=== PATIENT | male | born 1950 | race Caucasian/White ===

== ENCOUNTER 2017-05-06 11:16 | Inpatient (IN) | payer OTHER, MEDICARE ==
[~2017-05-06] VITALS: Ht 193 cm; Wt 113.4 kg
[~2017-05-06 11:16] MED LIST: AMLODIPINE BESY10 M1 PO; ASPIRIN EC81 M1 PO; BACTRIM DS TAB1 EACH PO; CEFTRIAXONE250 MG IV; DAILY VALUE1 EACH PO; HYDROCHLOROTHIA25 M1 PO; LISINOPRIL40 M1 PO; METFORMIN HCL850 M1 PO; NOVOLOG FL100 UNIT/1 SC; OXYCODONE HCL5 M1 PO; PERCOCET 5-3251 EACH PO; PLAVIX75 M1 PO; PROPRANOLOL HCL20 M1 PO; SIMVASTATIN10 M1 PO; TOUJEO SOL300 UNIT/1 SC; VANCO 1 GR1 GM/250 M IV; VERAPAMIL ER180 M1 PO
[2017-05-06 12:04] LABS: ABSOLUTE BASOPHIL COUNT 0 /CUMM (0.0-0.2); ABSOLUTE EOSINOPHIL COUNT 0.2 /CUMM (0.0-0.7); ABSOLUTE GRANULOCYTE CT 5.4 /CUMM (1.4-6.5); ABSOLUTE LYMPH COUNT 0.8 /CUMM (1.2-3.4); ABSOLUTE MONOCYTE COUNT 0.5 /CUMM (0.10-0.60); BASOPHIL % 0.3 % (0.0-2.0); EOSINOPHIL % 3.1 % (0-5); GRANULOCYTE % 78.1 % (42.2-75.2); HEMATOCRIT 38.3 % (42-52); MEAN CORPUSCULAR HGB 32.5 PG (27.0-31.0); MEAN CORPUSCULAR HGB CONC 34.4 G/DL (33.0-37.0); MEAN CORPUSCULAR VOLUME 94.4 FL (80.0-94.0); MEAN PLATELET VOLUME 8.8 FL (7.4-10.4); PLATELET COUNT 162 /CUMM (130-400); RBC DISTRIBUTION WIDTH 13.5 % (11.5-14.5); RED BLOOD CELL CT 4.06 /CUMM (4.70-6.10)
--- NOTE | 2017-05-06 12:44 | ED ANKLE/FOOT INJURY COMPLAINT ---
History of Present Illness General Chief Complaint: Lower Extremity Problems Stated Complaint: [facility] FOR INFECTED R FOOT Source: patient Exam Limitations: no limitations Vital Signs & Intake/Output Vital Signs & Intake/Output Vital Signs Date Time Temp Pulse Resp B/P B/P Pulse O2 O2 Flow FiO2 Mean Ox Delivery Rate 05/08 1550 97.9 83 20 132/64 95 Room Air 05/08 1033 140/80 05/08 1033 80 140/70 05/08 1033 80 140/70 05/08 1032 80 140/70 05/08 0625 97.5 80 18 140/70 96 Room Air 05/07 2121 98.7 82 18 148/98 98 Room Air 05/07 2114 82 148/98 ED Intake and Output 05/08 0000 05/07 1200 Intake Total 1180 500 Output Total 800 Balance 380 500 Intake, IV 700 500 Intake, Oral 480 Number 0 Bowel Movements Output, Urine 800 Allergies Coded Allergies: No Known Allergies (12/17/15) Reconcile Medications Amlodipine Besylate 10 MG TABLET 1 TAB PO DAILY BP (Reported) Aspirin (Ecotrin*) 81 MG TABLET.DR 1 TAB PO DAILY HEART/BLOOD (Reported) Hydrochlorothiazide 25 MG TABLET 1 TAB PO DAILY BP (Reported) Insulin Aspart, Recombinant (Novolog Flexpen) 100 UNIT/1 ML INSULN.PEN DIABETES (Reported) Less then 80 No insulin 80-150 5 Units 151-200 7 units 201-250 9 units 251-300 11 units 301-350 13 units 351-400 15 units more then 400 17 units and call your doctor Insulin Glargine,Hum.rec.anlog (Kathy Corrales) 300 UNIT/1 ML INSULN.PEN 34 UNITS SC QAM DIABETES (Reported) Lisinopril 40 MG TABLET 1 TAB PO DAILY BP (Reported) Metformin HCl 850 MG TABLET 1 TAB PO BID DIABETES (Reported) Multivitamin (Daily Value) 1 EACH TABLET 1 TAB PO DAILY VITAMIN SUPPORT ( Reported) Propranolol HCl 20 MG TABLET 1 TAB PO BID BP (Reported) Simvastatin (Simvastatin*) 10 MG TABLET 1 TAB PO QPM CHOLESTEROL (Reported) Verapamil HCl (Verapamil ER) 180 MG TABLET.ER 1 TAB PO DAILY BP (Reported) Triage Note: PT TO ED WITH C/O "INFECTED RIGHT FOOT AGAIN". Triage Nurses Notes Reviewed? yes Duration: day(s):, constant, continues in ED Timing: recent history Severity: moderate, severe Pain/Injury Location: Right: Foot. No Modifying Factors: none HPI: 67-year-old male comes into the emergency room for further evaluation of redness and swelling to right foot. History of diabetes and previous great toe amputation secondary to infection. He went to see his manufacturing applications engineer who sent him in here for further evaluation and admission. Denies any fever vomiting chills. Denies any other symptoms of symptoms. (Amrit Selby) Past History Travel History Traveled to [place] past 21 day No Medical History Any Pertinent Medical History? 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 No (Amrit Selby) Review of Systems Review of Systems Constitutional: Reports: no symptoms. EENTM: Reports: no symptoms. Respiratory: Reports: no symptoms. Cardiovascular: Reports: no symptoms. GI: Reports: no symptoms. Genitourinary: Reports: no symptoms. Musculoskeletal: Reports: see HPI. Skin: Reports: see HPI. Neurological/Psychological: Reports: no symptoms. Hematologic/Endocrine: Reports: no symptoms. Immunologic/Allergic: Reports: no symptoms. All Other Systems: Reviewed and Negative (Amrit Selby) Physical Exam Physical Exam General Appearance: well developed/nourished, mild distress Head: atraumatic Eyes: Bilateral: normal appearance. Ears, Nose, Throat: normal ENT inspection, hearing grossly normal Neck: normal inspection Cardiovascular/Respiratory: no respiratory distress Back: normal inspection Leg/Knee/Thigh Left: normal inspection Leg/Knee/Thigh Right: normal inspection Foot Right: erythema, swelling, warmth Neuro/Vascular: normal motor function Tendon: normal tendon function Psychiatric: awake, alert, oriented x 3 Skin: intact, normal color, warm/dry (Amrit Selby) Progress Differential Diagnosis: septic arthritis, gout, fracture, dislocation, sprain, contusion Plan of Care: Orders Procedure Date/time Status CBC WITHOUT DIFFERENTIAL 05/09 06 Active BASIC ELECTROLYTES PLUS BUN&CR 05/09 0600 Active Change service to 05/08 0918 Active Consistent Carbohydrate 3 05/07 D Active EXTREMETIES OR SPEC 05/07 1921 Active Current Medications Sig/Anh Start time Last Medication Dose Stop Time Status Admin Heparin Sodium 5,000 UNIT Q8 05/08 1442 AC (Porcine) Nicotine 7 MG DAILY 05/08 1000 AC 05/08 (Nicotine Cq) 1321 Vancomycin HCl 1,500 MG Q12 05/07 2200 AC 05/08 Sodium Chloride 250 ML 1030 (Normal Saline 0.9%) Atorvastatin Calcium 10 MG 1700 05/07 1700 AC 05/07 (Lipitor) 2114 Amlodipine Besylate 10 MG DAILY 05/07 1000 AC 05/08 (Norvasc) 1033 Hydrochlorothiazide 25 MG DAILY 05/07 1000 AC 05/08 (Hydrodiuril) 1033 Lisinopril 40 MG DAILY 05/07 1000 AC 05/08 (Prinivil) 1033 Multivitamins 1 TAB DAILY 05/07 1000 AC 05/08 Therapeutic 1034 (Theragran-M Vitamins Tabs) Verapamil HCl 180 MG DAILY 05/07 1000 AC 05/08 (Isoptin [id number] Tab 1033 (Verapamil Sr)) Insulin Detemir 17 UNITS BID 05/07 0045 AC 05/08 (Levemir) 1035 Propranolol HCl 20 MG BID 05/06 2200 AC 05/08 (Inderal 20 MG 1032 Tablet) Insulin Aspart 0 TIDAC 05/06 1700 AC 05/08 (NovoLOG) 1320 Hydromorphone HCl 0.5 MG Q8P PRN 05/06 1445 AC 05/08 (Dilaudid) 1321 Acetaminophen 650 MG Q6P PRN 05/06 1430 AC 05/08 (Tylenol) 0148 Acetaminophen 1,000 MG Q6P PRN 05/06 1430 AC 05/08 (Ofirmev) 1029 Laboratory Tests 05/08/17 0720: Anion Gap 14, Estimated GFR > 60, BUN/Creatinine Ratio 22.9, CBC w Diff NO MAN DIFF REQ, RBC 3.67 L, MCV 93.8, MCH 32.8 H, RDW 13.0, MPV 9.2, Gran % 88.1 H, Lymphocytes % 7.0 L, Monocytes % 4.7, Eosinophils % 0.1, Basophils % 0.1, Absolute Granulocytes 5.4, Absolute Lymphocytes 0.4 L, Absolute Monocytes 0.3, Absolute Eosinophils 0, Absolute Basophils 0, PUBS MCHC 35.0 Microbiology 05/07 1919 EXTREMITIE: Gross Specimen Examination - RES 05/07 1919 EXTREMITIE: Gram Stain - RES Diagnostic Imaging: Viewed by Me: Radiology Read. Discussed w/RAD: Radiology Read. Radiology Impression: PATIENT: JU ROSA PRESENT AGE: 67 PATIENT ACCOUNT NO: [id number] : 50 LOCATION: [facility] ORDERING PHYSICIAN: Amrit HANNAH SERVICE DATE: 05/06/17 EXAM TYPE: RAD - XRY-FOOT COMPLETE, R EXAMINATION: XR FOOT, RIGHT CLINICAL INFORMATION: History of great toe osteomyelitis status post amputation, rule out osteomyelitis COMPARISON: No postoperative imaging. Preoperative radiographs from 01/03/2016 and MRI from 01/10/2016 were reviewed. TECHNIQUE: AP, lateral, and oblique views of the right foot. FINDINGS: Status post amputation of the right great toe with amputation site at the proximal diaphysis of the first metatarsal. The bony stump appears unremarkable without cortical erosion, periosteal reaction, abnormal sclerosis or lucency. There is malalignment at the PIP joint of the second digit with plantar subluxation of the middle phalanx. There is subtle irregularity of the cortical margin of the second digit proximal phalanx. There is overlying soft tissue ulceration seen on lateral view. Additionally, a small ossific fragment is seen at the dorsal aspect of the PIP joint with possible donor site at the base of the middle phalanx. An os naviculare and prominent plantar calcaneal enthesophyte are again noted. IMPRESSION: There is subluxation of the PIP joint of the second toe with apparent fracture of the base of the middle phalanx. There is subtle irregularity of the cortex of the proximal phalanx. An overlying soft tissue ulceration is noted. 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 Recommend correlation with MRI. Status post great toe amputation with unremarkable appearance of the amputation site. DICTATED BY: Ashlee Chow MD DATE/TIME DICTATED:05/06/171242 [address] SQL DEVELOPER:PAXTON DATE/TIME TRANSCRIBED:1242 CONFIDENTIAL, DO NOT COPY WITHOUT APPROPRIATE AUTHORIZATION. < Electronically signed in Other Vendor System> SIGNED BY: Ashlee Chow MD 05/06/17 1305 (Amrit Selby) Departure Departure Disposition: STILL A PATIENT Condition: Stable Clinical Impression Primary Impression: Osteomyelitis of right foot Referrals: Nora Melendez MD (PCP/Family) Departure Forms: Customer Survey General Discharge Information Admission Note Spoke With: Tonya Gruber MD Documentation of Exam: Documentation of any treatments & extenuating circumstances including Concerns Regarding Discharge (functional status, medication knowledge or non-compliance, living conditions, etc.) that warrant an admission rather than observation: Patient will require MRI. Surgery. PICC line. IV antibiotics. High risk. Patient would do poorly as an outpatient. (Amrit Selby) PA/HOPPER ATTENDANT Co-Sign Statement Statement: ED Attending supervision documentation- [X] I saw and evaluated the patient. I have also reviewed all the pertinent lab results and diagnostic results. I agree with the findings and the plan of care as documented in the PA's/HOPPER ATTENDANT's documentation. [X] I have reviewed the ED Record and agree with the PA's/HOPPER ATTENDANT's documentation. [] Additions or exceptions (if any) to the PAs/HOPPER ATTENDANT's note and plan are summarized below: [] (Misty LOPEZ,Kristy)
--- NOTE | 2017-05-06 13:05 | RADIOLOGY REPORT ---
EXAMINATION: XR FOOT, RIGHT CLINICAL INFORMATION: History of great toe osteomyelitis status post amputation, rule out osteomyelitis COMPARISON: No postoperative imaging. Preoperative radiographs from 01/03/2016 and MRI from 01/10/2016 were reviewed. TECHNIQUE: AP, lateral, and oblique views of the right foot. FINDINGS: Status post amputation of the right great toe with amputation site at the proximal diaphysis of the first metatarsal. The bony stump appears unremarkable without cortical erosion, periosteal reaction, abnormal sclerosis or lucency. There is malalignment at the PIP joint of the second digit with plantar subluxation of the middle phalanx. There is subtle irregularity of the cortical margin of the second digit proximal phalanx. There is overlying soft tissue ulceration seen on lateral view. Additionally, a small ossific fragment is seen at the dorsal aspect of the PIP joint with possible donor site at the base of the middle phalanx. An os naviculare and prominent plantar calcaneal enthesophyte are again noted. IMPRESSION: There is subluxation of the PIP joint of the second toe with apparent fracture of the base of the middle phalanx. There is subtle irregularity of the cortex of the proximal phalanx. An overlying soft tissue ulceration is noted. 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 Recommend correlation with MRI. Status post great toe amputation with unremarkable appearance of the amputation site.
--- NOTE | 2017-05-06 14:08 | History & Physical ---
Himanshu LOPEZ,[facility] 05/06/17 1407: General Information and HPI MD Statement: I have seen and personally examined JU ROSA and documented this H&P. The patient is a 67 year old M who presented with a patient stated chief complaint of [foot ulcer]. Source of Information: patient History of Present Illness: 67 yo M with PMHx. of DM, HTN, PVD,HLD, esophogeal varicies, gastritits, hep C, BCC, melanoma presenting from the ED from his podarist office for a chronic ulcer of his R foot. He has had his R big toe amputated due to osteomylitis 2/2 to diabtes in the past. He is able to move his toes and reports sensation of his foot. Allergies/Medications Allergies: Coded Allergies: No Known Allergies (12/17/15) Home Med list Amlodipine Besylate 10 MG TABLET 1 TAB PO DAILY BP (Reported) Aspirin (Ecotrin*) 81 MG TABLET.DR 1 TAB PO DAILY HEART/BLOOD (Reported) Hydrochlorothiazide 25 MG TABLET 1 TAB PO DAILY BP (Reported) Insulin Aspart, Recombinant (Novolog Flexpen) 100 UNIT/1 ML INSULN.PEN DIABETES (Reported) Less then 80 No insulin 80-150 5 Units 151-200 7 units 201-250 9 units 251-300 11 units 301-350 13 units 351-400 15 units more then 400 17 units and call your doctor Insulin Glargine,Hum.rec.anlog (Kathy Solviridiana) 300 UNIT/1 ML INSULN.PEN 34 UNITS SC QAM DIABETES (Reported) Lisinopril 40 MG TABLET 1 TAB PO DAILY BP (Reported) Metformin HCl 850 MG TABLET 1 TAB PO BID DIABETES (Reported) Multivitamin (Daily Value) 1 EACH TABLET 1 TAB PO DAILY VITAMIN SUPPORT ( Reported) Propranolol HCl 20 MG TABLET 1 TAB PO BID BP (Reported) Simvastatin (Simvastatin*) 10 MG TABLET 1 TAB PO QPM CHOLESTEROL (Reported) Verapamil HCl (Verapamil ER) 180 MG TABLET.ER 1 TAB PO DAILY BP (Reported) Past History Travel History Traveled to [place] past 21 day No Medical History Neurological: NONE EENT: NONE Cardiovascular: hypertension, hyperlipidemia Respiratory: NONE Gastrointestinal: esophageal varices gastritis Hepatic: hepatitis C Renal: NONE Musculoskeletal: fracture Psychiatric: NONE Endocrine: diabetes Blood Disorders: NONE 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 Ambulation: independent IADLs Independent: shopping, housework, finances, food prep, telephone, transportation , medication admin. Review of Systems Review of Systems Constitutional: Reports: no symptoms. Denies: chills, diaphoresis, fever. Cardiovascular: Reports: no symptoms. Denies: chest pain. Respiratory: Reports: no symptoms. Denies: cough, orthopnea, short of breath, sputum production. GI: Reports: no symptoms. Denies: abdominal pain, changes in stool. Genitourinary: Reports: no symptoms. Musculoskeletal: Reports: see HPI. Skin: Reports: see HPI. Exam & Diagnostic Data Last 24 Hrs of Vital Signs/I&O Vital Signs Date Time Temp Pulse Resp B/P B/P Pulse O2 O2 Flow FiO2 Mean Ox Delivery Rate 05/06 2046 98.1 95 20 150/74 95 Room Air 05/06 194 97.6 108 20 148/76 97 Room Air 05/06 1933 97 Room Air 05/06 1843 96.6 86 18 153/77 97 05/06 1127 97.6 98 18 146/86 98 Room Air Room Air Intake & Output 05/06 1600 05/06 0800 05/06 0000 Intake Total 0 Output Total Balance 0 Intake, Oral 0 Patient 250 lb Weight Weight Reported by Patient Measurement Method Physical Exam General Appearance Alert, Oriented X3, Cooperative, No Acute Distress Skin R 2nd toe chronic ulceration with serosangous discharge, erythema and warmth of right foot Cardiovascular Regular Rate, Normal S1, Normal S2 Lungs Clear to Auscultation, Normal Air Movement Abdomen Normal Bowel Sounds, Soft, No Tenderness Neurological sensation of R foot intact Extremities 1+ trace edema Body Front and Back (Adult) 1) Last 24 Hrs of Labs/Hipolito: Laboratory Tests 05/06/17 1300: ESR Westergren 85 H 05/06/17 1140: Anion Gap 14, Estimated GFR > 60, BUN/Creatinine Ratio 22.2, Glucose 214 H, Calcium 10.0, Total Bilirubin 0.5, AST 21, ALT 51, Alkaline Phosphatase 140 H, C-Reactive Prot, Quant 3.0 H, Total Protein 8.2, Albumin 4.5, Globulin 3.7, Albumin/Globulin Ratio 1.2, CBC w Diff NO MAN DIFF REQ, RBC 4.06 L, MCV 94.4 H , MCH 32.5 H, RDW 13.5, MPV 8.8, Gran % 78.1 H, Lymphocytes % 11.3 L, Monocytes % 7.2, Eosinophils % 3.1, Basophils % 0.3, Absolute Granulocytes 5.4, Absolute Lymphocytes 0.8 L, Absolute Monocytes 0.5, Absolute Eosinophils 0.2, Absolute Basophils 0, PUBS MCHC 34.4 Microbiology 05/06 1150 BLOOD: Blood Culture - RECD 05/06 114 BLOOD: Blood Culture - RECD Assessment/Plan Assessment: 67 yo M with PMHx. 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 #possible osteomyelitis WBC 7.0 glucose 214 ALP 140 CRP 3.0 Foot XR: There is subluxation of the PIP joint of the second toe with apparent fracture of the base of the middle phalanx. There is subtle irregularity of the cortex of the proximal phalanx. An overlying soft tissue ulceration is noted. 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 Foot MRI: Ulceration at the dorsal margin of the second toe PIP joint with osteomyelitis of the proximal and middle phalanges. -NPO tonight for OR with Dr mayfield tomorrow -f/u I+D biosy cx -monitor blood cx -check vascular doppler -f/u ESR -f/u vascular surgery consult -holding antiociaglants for surgery tomorrow #diabetes will be NPO -novolin sliding scale with D5 1/2 NS #hld -atorvastatin #htn -verapamil, lisinopril, hctz, amlodipine, propanolol #dvt prophylaxis -ALPS in L leg #FULL CODE As Ranked By This Provider Problem List: 1. Foot osteomyelitis, right Core Measures/Misc (01/11) Acute Coronary Syndrome ACS Diagnosis: No Congestive Heart Failure Congestive Heart Failure Diagnosis No Cerebrovascular Accident CVA/TIA Diagnosis: No VTE (View Protocol) VTE Risk Factors No risk factors No Mechanical VTE Prophylaxis d/t Surgical Contraindication No VTE Pharm Prophylaxis d/t Surgical Contraindication Sepsis (View protocol) Sepsis Present: No Pam Rivera 05/06/17 1539: Attending MD Review Statement Attending Statement Attending MD Statement: examined this patient, discuss w/resident/PA/MEDICAL ARTIST, agreed w/resident/PA/MEDICAL ARTIST, discussed with family, reviewed EMR data (avail), discussed with nursing, discussed with case mgmt, reviewed images, amended to note Attending Assessment/Plan: 67 o/m with pmh of severe PVD s/p stent placement with amputaiotn of right toe, diabetes mellitus on insulin, H/o osteomyelitis with multiple organisms and resistant to multidrug organism was on iv antibiotics in 2016 comes with redness , pain of right foot. Pain he describes 0-1/10 with redness going on off for 1 week now. Podaitry conuslted in ER and plan for possible biopsy as per Dr Post. Patient would be admitted to inpatient medical services for right foot osteomyelitis recurrent with severe peripheral vascualr disease and uncontrolled hyperglycemia. ESR 85 CRP >3 Conuslt ID, vascualr surgery. MRI foot, obtain arterial doppler. Abx as per ID. Resume long acting insulin with RISS and titrate insulin as needed. NPO past MN. Resume home meds except blood thinners in anticipation of podiatry intervention. gi/dvt prophyalxis full code. Alicia Bang 05/06/17 1807: Resident Review Statement Resident Statement: examined this patient, discussed with pr internship, agreed with pr internship, reviewed EMR data (avail), discussed with nursing, reviewed images Other Findings: is a 67 yo man with PMHx. of DM, HTN, PVD presented to ED from his podaitry office Dr. Mayfield for chronic ulcer of the right foot, patient has a hx. of right foot ulcer s/p ambutation of the right great toe. Vitals, examination and imaging as above Assessment: -Chronic ulcer of the right foot -Fracture of the right -Hx. of DM -Hx. of HTN Plan: -Will admitt the patient to general medicine floor -NPO after midnight for possible debridment tomorrow -Will hydrate with IV NS since to D5 half normL available -Podaitry consult, ID consult -TEOFILO FletcherO sliding scale -Will check Lower arterial doppler -Vascular surgeon consult -Will check ESR -Will continue home meds -MRI of the right foot Lovenox for DVT ppx from tomorrow after the procedure Full code
--- NOTE | 2017-05-06 17:15 | Cons- Vascular Surgery ---
General Information and HPI Consulting Request Date of Consult: 05/06/17 Requested By: Pam Rivera MD Reason for Consult: eval vascular status RLE Source of Information: patient, old records Exam Limitations: no limitations History of Present Illness: 67 yo male, presents to ER with R foot non healing wound, erythema and pain at dorsum x 1 week. Hx of smoking 50+ pack year, severe PVD s/p stent placement in SFA with Dr Hui, hx of amputaiotn of right toe, diabetes mellitus on insulin, H/o osteomyelitis. Patient is being admitted to the medical service and vascular surgery was consulted for evaluation of the vascular flow the right lower extremity. Patient denies any claudication symptoms or any other pain in the leg or problems with stent since his procedure. He has been on aspirin. Allergies/Medications Allergies: Coded Allergies: No Known Allergies (12/17/15) Home Med List: Amlodipine Besylate 10 MG TABLET 1 TAB PO DAILY BP (Reported) Aspirin (Ecotrin*) 81 MG TABLET.DR 1 TAB PO DAILY HEART/BLOOD (Reported) Hydrochlorothiazide 25 MG TABLET 1 TAB PO DAILY BP (Reported) Insulin Aspart, Recombinant (Novolog Flexpen) 100 UNIT/1 ML INSULN.PEN DIABETES (Reported) Less then 80 No insulin 80-150 5 Units 151-200 7 units 201-250 9 units 251-300 11 units 301-350 13 units 351-400 15 units more then 400 17 units and call your doctor Insulin Glargine,Hum.rec.anlog (Toudahlia Solbenar) 300 UNIT/1 ML INSULN.PEN 34 UNITS SC QAM DIABETES (Reported) Lisinopril 40 MG TABLET 1 TAB PO DAILY BP (Reported) Metformin HCl 850 MG TABLET 1 TAB PO BID DIABETES (Reported) Multivitamin (Daily Value) 1 EACH TABLET 1 TAB PO DAILY VITAMIN SUPPORT ( Reported) Propranolol HCl 20 MG TABLET 1 TAB PO BID BP (Reported) Simvastatin (Simvastatin*) 10 MG TABLET 1 TAB PO QPM CHOLESTEROL (Reported) Verapamil HCl (Verapamil ER) 180 MG TABLET.ER 1 TAB PO DAILY BP (Reported) Past History Medical History Neurological: NONE EENT: NONE Cardiovascular: hypertension, hyperlipidemia Respiratory: NONE Gastrointestinal: esophageal varices gastritis Hepatic: hepatitis C Renal: NONE Musculoskeletal: fracture Psychiatric: NONE Endocrine: diabetes Blood Disorders: NONE Cancer(s): basal cell carcinoma, melanoma 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 Ambulation: independent IADLs Independent: shopping, housework, finances, food prep, telephone, transportation , medication admin. Review of Systems Review of Systems: Review of systems: See HPI, all other systems negative. Constitutional: No chills fever or weight loss HEENT: No visual changes no sore throat no congestion Cardiovascular: No chest pain ,palpitation , orthopnea or ankle swelling Skin: No jaundice no rashes Respiratory: No dyspnea cough sputum or hemoptysis GI: No nausea no vomiting : No dysuria no hematuria Musclulo skeletal: See HPI Neurologic: No numbness no confusion Psych: No stress anxiety or depression,. Heme/endocrine: No bruising no bleeding no polyuria or polydipsia Immunology: No splenectomy or history of AIDS Exam & Diagnostic Data Vital Signs and I&O Vital Signs Date Time Temp Pulse Resp B/P B/P Pulse O2 O2 Flow FiO2 Mean Ox Delivery Rate 05/06 1127 97.6 98 18 146/86 98 Room Air Room Air Intake & Output 05/06 1600 05/06 0800 05/06 0000 05/05 1600 05/05 0800 05/05 0000 Intake Total 0 Output Total Balance 0 Intake, Oral 0 Patient 250 lb Weight Weight Reported by Patient Measurement Method Physical Exam: Well-developed well-nourished no apparent distress. HEENT: Atraumatic, extraocular motion intact Neck: Supple, no lymphadenopathy Respiratory: No respiratory distress Extremities: No edema, no calf pain Right lower extremity, palpable popliteal, dorsal pedal and posterior tibial pulses. The foot and lower leg and toes are warm to touch, good capillary refill, no critical signs of decreased vascular flow to the right lower extremity. There is no edema. The right great toe is amputated. There is a scab noted and small ulceration at the plantar aspect of the second digit on the right foot with swelling and erythema that extends to the dorsum of the foot. It is hyperemic and warm to touch and tender to touch. Neuro: Alert and oriented x3 Psych: Mood affect normal, normal memory normal judgment. Skin: Warm and dry, no rash on exposed skin Last 24 Hours of Labs: Laboratory Tests 05/06 05/06 1300 1140 Chemistry Sodium (137 - 145 mmol/L) 139 Potassium (3.5 - 5.1 mmol/L) 4.2 Chloride (98 - 107 mmol/L) 104 Carbon Dioxide (22 - 30 mmol/L) 21 L Anion Gap (5 - 16) 14 BUN (9 - 20 mg/dL) 20 Creatinine (0.7 - 1.2 mg/dL) 0.9 Estimated GFR (>60 ml/min) > 60 BUN/Creatinine Ratio (7 - 25 %) 22.2 Glucose (65 - 99 mg/dL) 214 H Calcium (8.4 - 10.2 mg/dL) 10.0 Total Bilirubin (0.2 - 1.3 mg/dL) 0.5 AST (17 - 59 U/L) 21 ALT (21 - 72 U/L) 51 Alkaline Phosphatase (< 127 U/L) 140 H C-Reactive Prot, Quant (<1.0 mg/dL) 3.0 H Total Protein (6.3 - 8.2 g/dL) 8.2 Albumin (3.5 - 5.0 g/dL) 4.5 Globulin (1.9 - 4.2 gm/dL) 3.7 Albumin/Globulin Ratio (1.1 - 2.2 %) 1.2 Hematology CBC w Diff NO MAN DIFF REQ WBC (4.8 - 10.8 /CUMM) 7.0 RBC (4.70 - 6.10 /CUMM) 4.06 L Hgb (14.0 - 18.0 G/DL) 13.2 L Hct (42 - 52 %) 38.3 L MCV (80.0 - 94.0 FL) 94.4 H MCH (27.0 - 31.0 PG) 32.5 H RDW (11.5 - 14.5 %) 13.5 Plt Count (130 - 400 /CUMM) 162 MPV (7.4 - 10.4 FL) 8.8 Gran % (42.2 - 75.2 %) 78.1 H Lymphocytes % (20.5 - 51.1 %) 11.3 L Monocytes % (1.7 - 9.3 %) 7.2 Eosinophils % (0 - 5 %) 3.1 Basophils % (0.0 - 2.0 %) 0.3 Absolute Granulocytes (1.4 - 6.5 /CUMM) 5.4 Absolute Lymphocytes (1.2 - 3.4 /CUMM) 0.8 L Absolute Monocytes (0.10 - 0.60 /CUMM) 0.5 Absolute Eosinophils (0.0 - 0.7 /CUMM) 0.2 Absolute Basophils (0.0 - 0.2 /CUMM) 0 PUBS MCHC (33.0 - 37.0 G/DL) 34.4 ESR Westergren (0 - 10 MM) 85 H Imaging Results: X-rays of the right foot are suggestive of osteomyelitis to the second toe Assessment/Plan Assessment/Plan Patient is being admitted to inpatient medical services for right foot osteomyelitis and cellulitis. Recommend podiatry consult, infectious disease consult for advice as to proper antibiotics. There are no clinical signs that the SFA stent is occluded and no clinical signs that there is poor vascular flow to the right lower extremity. He has palpable popliteal, dorsal pedal and posterior tibial pulses on exam and good capillary refill throughout the foot and remaining toes. Arterial ultrasound was ordered, we'll follow results however do not feel as though any further vascular procedures are indicated. Discussed with . Consult Acknowledgment - Thank you for your consult request.
--- NOTE | 2017-05-06 17:39 | MRI REPORT ---
EXAMINATION: MRI OF THE RIGHT FOOT WITHOUT CONTRAST CLINICAL INFORMATION: Right foot redness and swelling. Rule out osteomyelitis COMPARISON: 01/10/2016 TECHNIQUE: Multiplanar MR imaging was obtained through the right foot on a 1.5 Keysha magnet without intravenous contrast.. FINDINGS: Postsurgical changes of prior amputation of the great toe at the level of the proximal metatarsal shaft are noted. There is a soft tissue ulceration at the dorsal margin of the second toe PIP joint measuring 0.7 x 0.7 cm with surrounding soft tissue edema and soft tissue swelling. Marked edema signal is present within the second toe proximal phalanx and middle phalanx with loss of normal T1 signal at the distal half of the proximal phalanx and proximal half of the middle phalanx. These findings are consistent with osteomyelitis. There is plantar subluxation of the middle phalanx at the PIP joint, likely due to disruption of the dorsal joint capsule. The extensor tendon is not well seen in this region and may be disrupted. A discrete abscess is not seen, though sensitivity is limited by the absence of intravenous contrast. No additional areas of osteolysis are identified. Bone marrow signal is otherwise normal. Edema signal and fatty replacement in the intrinsic foot musculature is consistent with chronic changes of diabetes. Post surgical changes are present at the stump of the distal margin of the great toe metatarsal. Plantar fascia is unremarkable. There is a chronic plantar plate injury at the second toe proximal phalangeal base. IMPRESSION: Ulceration at the dorsal margin of the second toe PIP joint with osteomyelitis of the proximal and middle phalanges.
[2017-05-06 20:47] VITALS: BP 150/74
[2017-05-07 07:14] VITALS: BP 128/76
--- NOTE | 2017-05-07 08:08 | ULTRASOUND REPORT ---
EXAMINATION: US DUPLEX LOWER EXTREMITY ARTERY/GRAFT LIMITED, RIGHT CLINICAL INFORMATION: Chronic ulcer right foot, redness, weak pulse. Rule out peripheral arterial disease. COMPARISON: 01/16/2016 TECHNIQUE: Real-time ultrasound and Doppler techniques (integrating B-mode 2-D vascular images, Doppler spectral analysis and color flow Doppler imaging) were utilized to interrogate the right lower extremity arteries. FINDINGS: Since the prior study, angioplasty/stenting of the superficial femoral artery has been performed. Moderate atherosclerotic plaque at the common femoral artery. Triphasic waveform. Velocity 143/8 cm/s. Mild atherosclerotic plaque in the profunda femoral artery. Triphasic waveform. Velocity 60/6 cm/s. Patent stented proximal superficial femoral artery. Triphasic waveform. Velocity 71/10 cm/s. Patent stented mid superficial femoral artery. Triphasic waveform. Velocity 60/3 cm/s. Patent stented distal superficial femoral artery. Triphasic waveform. Velocity 88/16 cm/s. Mild atherosclerotic plaque in the popliteal artery. Triphasic waveform. Velocity 82/18 cm/s. Anterior tibial artery is not visualized. The peroneal artery is not visualized. Limited visualization of the posterior tibial artery. Suspect monophasic waveform. Velocity 63/12 cm/s. Monophasic waveform of the dorsalis pedis. Velocity 54/12 cm/s. IMPRESSION: Patent stented superficial femoral artery. Nonvisualization of the anterior tibial and peroneal arteries, question occluded. Abnormal monophasic waveforms in the posterior tibial and dorsalis pedis arteries.
[2017-05-07 08:15] LABS: ABSOLUTE BASOPHIL COUNT 0 /CUMM (0.0-0.2); ABSOLUTE EOSINOPHIL COUNT 0.2 /CUMM (0.0-0.7); ABSOLUTE LYMPH COUNT 0.7 /CUMM (1.2-3.4); ABSOLUTE MONOCYTE COUNT 0.4 /CUMM (0.10-0.60)
[2017-05-07 08:54] LABS: ABSOLUTE GRANULOCYTE CT 3.1 /CUMM (1.4-6.5); BASOPHIL % 0.4 % (0.0-2.0); EOSINOPHIL % 4.2 % (0-5); GRANULOCYTE % 70.4 % (42.2-75.2); MEAN CORPUSCULAR HGB 32.9 PG (27.0-31.0); MEAN CORPUSCULAR HGB CONC 34.2 G/DL (33.0-37.0); MEAN CORPUSCULAR VOLUME 96.2 FL (80.0-94.0); MEAN PLATELET VOLUME 9.1 FL (7.4-10.4); PLATELET COUNT 119 /CUMM (130-400); RBC DISTRIBUTION WIDTH 13.6 % (11.5-14.5); RED BLOOD CELL CT 3.47 /CUMM (4.70-6.10); WHITE BLOOD CELL COUNT 4.4 /CUMM (4.8-10.8)
[2017-05-07 09:01] LABS: HEMATOCRIT 33.3 % (42-52)
--- NOTE | 2017-05-07 10:49 | Cons- Infect Disease ---
General Information and HPI Consulting Request Date of Consult: 05/07/17 Requested By: Miguel LOPEZ,Pam Reason for Consult: Osteomyelitis of the right second toe Source of Information: patient, old records History of Present Illness: This is a 67-year-old man with a history of diabetes, hypertension, Hepatitis C, with esophageal varices, status post right great toe amputation 16 months prior to admission for osteomyelitis secondary to MRSA and Klebsiella, treated with Vancomycin and Ceftriaxone for 4 weeks, with a right SFA angioplasty on that admission, admitted on May 06 with a three-week history of erythema of the right second toe and more acute onset of swelling, pain and drainage with no associated fevers or chills. On admission he was afebrile. Laboratory data revealed a white blood cell count of 7000, glucose 214, BUN/creatinine 20 and 0.9, alk phosphatase 140. 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 An MRI of the right foot revealed an ulceration at the dorsal margin of the second toe PIP joint with osteomyelitis of the proximal and middle phalanges. An arterial Doppler of the right foot revealed nonvisualization of the anterior tibial and peroneal arteries. He was followed off antibiotics and has remained afebrile. He is scheduled for the OR later today. Allergies/Medications Allergies: Coded Allergies: No Known Allergies (12/17/15) Home Med List: Amlodipine Besylate 10 MG TABLET 1 TAB PO DAILY BP (Reported) Aspirin (Ecotrin*) 81 MG TABLET.DR 1 TAB PO DAILY HEART/BLOOD (Reported) Hydrochlorothiazide 25 MG TABLET 1 TAB PO DAILY BP (Reported) Insulin Aspart, Recombinant (Novolog Flexpen) 100 UNIT/1 ML INSULN.PEN DIABETES (Reported) Less then 80 No insulin 80-150 5 Units 151-200 7 units 201-250 9 units 251-300 11 units 301-350 13 units 351-400 15 units more then 400 17 units and call your doctor Insulin Glargine,Hum.rec.anlog (Kathy Corrales) 300 UNIT/1 ML INSULN.PEN 34 UNITS SC QAM DIABETES (Reported) Lisinopril 40 MG TABLET 1 TAB PO DAILY BP (Reported) Metformin HCl 850 MG TABLET 1 TAB PO BID DIABETES (Reported) Multivitamin (Daily Value) 1 EACH TABLET 1 TAB PO DAILY VITAMIN SUPPORT ( Reported) Propranolol HCl 20 MG TABLET 1 TAB PO BID BP (Reported) Simvastatin (Simvastatin*) 10 MG TABLET 1 TAB PO QPM CHOLESTEROL (Reported) Verapamil HCl (Verapamil ER) 180 MG TABLET.ER 1 TAB PO DAILY BP (Reported) Past History Travel History Traveled to [place] past 21 day No Medical History Blood Transfusion Hx: No Neurological: NONE EENT: NONE Cardiovascular: hypertension, hyperlipidemia Respiratory: NONE Gastrointestinal: esophageal varices, gastritis Hepatic: hepatitis C Renal: NONE Musculoskeletal: fracture Psychiatric: NONE Endocrine: diabetes Blood Disorders: NONE Cancer(s): basal cell carcinoma, melanoma 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 Home Services at Home: None Smoking Status: Current Everyday Smoker ETOH Use: denies use Illicit Drug Use: denies illicit drug use Functional Ability ADLs Independent: dressing, eating, toileting, bathing. Ambulation: independent IADLs Independent: shopping, housework, finances, food prep, telephone, transportation , medication admin. Review of Systems Review of Systems All Other Systems: Reviewed and Negative Exam & Diagnostic Data Last 24 Hrs of Vital Signs/I&O Vital Signs Date Time Temp Pulse Resp B/P B/P Pulse O2 O2 Flow FiO2 Mean Ox Delivery Rate 05/07 0714 98.0 79 20 128/76 96 05/07 0020 120/72 05/06 2046 98.1 95 20 150/74 95 Room Air 05/06 1942 97.6 108 20 148/76 97 Room Air 05/06 1933 97 Room Air 05/06 1843 96.6 86 18 153/77 97 05/06 1127 97.6 98 18 146/86 98 Room Air Room Air Intake & Output 05/07 1600 05/07 0800 05/07 0000 Intake Total 500 Output Total Balance 500 Intake, IV 500 Intake, Oral Patient 250 lb Weight Physical Exam Other Physical Findings: Afebrile. He is awake and alert in no acute distress. Skin reveals no rash. HEENT negative. Neck is supple with no adenopathy. Lungs are clear. Heart regular rhythm with no murmur. Abdomen is soft, nontender with positive bowel sounds. Back no CVA tenderness. Extremities status post right great toe amputation; subluxed right second toe with proximalnecrosis, swelling and erythema, with erythema over the dorsum of the right foot; pulses 1+. Neuro neuropathy both feet. Last 24 Hours of Lab Results: Laboratory Tests 05/07 05/06 0605 1300 Chemistry Sodium (137 - 145 mmol/L) 141 Potassium (3.5 - 5.1 mmol/L) 4.0 Chloride (98 - 107 mmol/L) 106 Carbon Dioxide (22 - 30 mmol/L) 23 Anion Gap (5 - 16) 13 BUN (9 - 20 mg/dL) 19 Creatinine (0.7 - 1.2 mg/dL) 0.8 Estimated GFR (>60 ml/min) > 60 BUN/Creatinine Ratio (7 - 25 %) 23.8 Hematology CBC w Diff NO MAN DIFF REQ WBC (4.8 - 10.8 /CUMM) 4.4 L RBC (4.70 - 6.10 /CUMM) 3.47 L Hgb (14.0 - 18.0 G/DL) 11.4 L Hct (42 - 52 %) 33.3 L MCV (80.0 - 94.0 FL) 96.2 H MCH (27.0 - 31.0 PG) 32.9 H RDW (11.5 - 14.5 %) 13.6 Plt Count (130 - 400 /CUMM) 119 L MPV (7.4 - 10.4 FL) 9.1 Gran % (42.2 - 75.2 %) 70.4 Lymphocytes % (20.5 - 51.1 %) 16.0 L Monocytes % (1.7 - 9.3 %) 9.0 Eosinophils % (0 - 5 %) 4.2 Basophils % (0.0 - 2.0 %) 0.4 Absolute Granulocytes (1.4 - 6.5 /CUMM) 3.1 Absolute Lymphocytes (1.2 - 3.4 /CUMM) 0.7 L Absolute Monocytes (0.10 - 0.60 /CUMM) 0.4 Absolute Eosinophils (0.0 - 0.7 /CUMM) 0.2 Absolute Basophils (0.0 - 0.2 /CUMM) 0 PUBS MCHC (33.0 - 37.0 G/DL) 34.2 ESR Westergren (0 - 10 MM) 85 H 05/06 1140 Chemistry Sodium (137 - 145 mmol/L) 139 Potassium (3.5 - 5.1 mmol/L) 4.2 Chloride (98 - 107 mmol/L) 104 Carbon Dioxide (22 - 30 mmol/L) 21 L Anion Gap (5 - 16) 14 BUN (9 - 20 mg/dL) 20 Creatinine (0.7 - 1.2 mg/dL) 0.9 Estimated GFR (>60 ml/min) > 60 BUN/Creatinine Ratio (7 - 25 %) 22.2 Glucose (65 - 99 mg/dL) 214 H Calcium (8.4 - 10.2 mg/dL) 10.0 Total Bilirubin (0.2 - 1.3 mg/dL) 0.5 AST (17 - 59 U/L) 21 ALT (21 - 72 U/L) 51 Alkaline Phosphatase (< 127 U/L) 140 H C-Reactive Prot, Quant (<1.0 mg/dL) 3.0 H Total Protein (6.3 - 8.2 g/dL) 8.2 Albumin (3.5 - 5.0 g/dL) 4.5 Globulin (1.9 - 4.2 gm/dL) 3.7 Albumin/Globulin Ratio (1.1 - 2.2 %) 1.2 Hematology CBC w Diff NO MAN DIFF REQ WBC (4.8 - 10.8 /CUMM) 7.0 RBC (4.70 - 6.10 /CUMM) 4.06 L Hgb (14.0 - 18.0 G/DL) 13.2 L Hct (42 - 52 %) 38.3 L MCV (80.0 - 94.0 FL) 94.4 H MCH (27.0 - 31.0 PG) 32.5 H RDW (11.5 - 14.5 %) 13.5 Plt Count (130 - 400 /CUMM) 162 MPV (7.4 - 10.4 FL) 8.8 Gran % (42.2 - 75.2 %) 78.1 H Lymphocytes % (20.5 - 51.1 %) 11.3 L Monocytes % (1.7 - 9.3 %) 7.2 Eosinophils % (0 - 5 %) 3.1 Basophils % (0.0 - 2.0 %) 0.3 Absolute Granulocytes (1.4 - 6.5 /CUMM) 5.4 Absolute Lymphocytes (1.2 - 3.4 /CUMM) 0.8 L Absolute Monocytes (0.10 - 0.60 /CUMM) 0.5 Absolute Eosinophils (0.0 - 0.7 /CUMM) 0.2 Absolute Basophils (0.0 - 0.2 /CUMM) 0 PUBS MCHC (33.0 - 37.0 G/DL) 34.4 Last 24 Hours of [place] Results: Blood cultures 2 May 06 negative Diagnostic Data Recent Imaging Findings: X-ray of the right foot revealed subluxation of the PIP joint of the second toe with apparent fracture of the base of the middle phalanx and with a subtle irregularity of the cortex of the proximal phalanx, 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 MRI of the right foot revealed an ulceration at the dorsal margin of the second toe PIP joint with osteomyelitis of the proximal and middle phalanges. Arterial Doppler of the right foot revealed nonvisualization of the anterior tibial and peroneal arteries. Assessment/Plan Assessment/Plan Impression: This is a 67-year-old man with a history of diabetes, hypertension, Hepatitis C, with esophageal varices, status post right great toe amputation 16 months prior to admission for osteomyelitis secondary to MRSA and Klebsiella, with a right SFA angioplasty on that admission, admitted on May 06 with swelling, pain and drainage of the right second toe, increased over the past several days, found to be afebrile with a normal white blood cell count and with an x-ray and MRI of the right foot suggestive of osteomyelitis of the right second toe. He is scheduled for debridement later today, which will likely require amputation of the second toe and suspect that he will require a prolonged course of antibiotics postoperatively for residual osteomyelitis. Suggestion: 1. Await OR later today for probable amputation of the right second toe 2. Vascular surgery follow-up regarding his arterial Doppler results 3. Begin Vancomycin 1.5 g IV every 12 hours after surgery pending OR cultures Consult Acknowledgment - Thank you for your consult request.
--- NOTE | 2017-05-07 11:16 | PN- Housestaff ---
Subjective Follow-up For: chronic ulcer/osteomyelitis Subjective: No acute events overnight. Still has some slight pain of his R 2nd toe with chronic ulcer. Review of Systems Constitutional: Reports: no symptoms. Cardiovascular: Reports: no symptoms. Respiratory: Reports: no symptoms. Gastrointestinal: Reports: no symptoms. Genitourinary: Reports: no symptoms. Musculoskeletal: Reports: see HPI (toe pain). Skin: Reports: see HPI (chronic ulcer). Objective Last 24 Hrs of Vital Signs/I&O Vital Signs Date Time Temp Pulse Resp B/P B/P Pulse O2 O2 Flow FiO2 Mean Ox Delivery Rate 05/07 1337 98.4 81 20 134/70 98 Room Air 05/07 1035 7 128/76 05/07 1035 79 128/76 05/07 1034 79 128/76 05/07 1034 128/76 05/07 0714 98.0 79 20 128/76 96 05/07 0020 120/72 05/06 2047 98.1 95 20 150/74 95 Room Air 05/06 1942 97.6 108 20 148/76 97 Room Air 05/06 1933 97 Room Air 05/06 1843 96.6 86 18 153/77 97 Intake & Output 05/07 1600 05/07 0800 05/07 0000 Intake Total 700 500 Output Total 450 Balance 250 500 Intake, IV 700 500 Intake, Oral Number 0 Bowel Movements Output, Urine 450 Patient 250 lb Weight Physical Exam General Appearance: Alert, Oriented X3, Cooperative, No Acute Distress Skin: chronic 2nd toe ulcer of R foot with serosanginous fluid Cardiovascular: Regular Rate, Normal S1, Normal S2 Lungs: Clear to Auscultation, Normal Air Movement Abdomen: Normal Bowel Sounds, Soft, No Tenderness Extremities: 2+ radial pulses Current Medications: Current Medications Sig/Anh Start time Last Medication Dose Route Stop Time Status Admin Acetaminophen 650 MG Q6P PRN 05/06 1430 AC PO Acetaminophen 1,000 MG Q6P PRN 05/06 1430 AC 05/06 IV 2119 Amlodipine Besylate 10 MG DAILY 05/07 1000 AC 05/07 PO 1035 Atorvastatin Calcium 10 MG 1700 05/07 1700 AC PO Enoxaparin Sodium 40 MG DAILY 05/07 1000 CAN SC Hydrochlorothiazide 25 MG DAILY 05/07 1000 AC 05/07 PO 1035 Hydromorphone HCl 0.5 MG Q8P PRN 05/06 1445 AC IV Insulin Aspart 0 TIDAC 05/06 1700 AC 05/07 SC 1200 Insulin Detemir 17 UNITS BID 05/07 0045 AC 05/07 SC 1036 Lisinopril 40 MG DAILY 05/07 1000 AC 05/07 PO 1035 Multivitamins 1 TAB DAILY 05/07 1000 AC 05/07 Therapeutic PO 1036 Propranolol HCl 20 MG BID 05/06 2200 AC 05/07 PO 1034 Sodium Chloride 1,000 ML Q10H 05/06 1715 AC 05/07 IV 1423 Verapamil HCl 180 MG DAILY 05/07 1000 AC 05/07 PO 1034 Last 24 Hrs of Lab/[place] Results Last 24 Hrs of Labs/Mics: Laboratory Tests 05/07/17 06: Anion Gap 13, Estimated GFR > 60, BUN/Creatinine Ratio 23.8, Hemoglobin A1c 8.0 H, CBC w Diff NO MAN DIFF REQ, RBC 3.47 L, MCV 96.2 H, MCH 32.9 H, RDW 13.6, MPV 9.1, Gran % 70.4, Lymphocytes % 16.0 L, Monocytes % 9.0, Eosinophils % 4.2, Basophils % 0.4, Absolute Granulocytes 3.1, Absolute Lymphocytes 0.7 L, Absolute Monocytes 0.4, Absolute Eosinophils 0.2, Absolute Basophils 0, PUBS MCHC 34.2 Assessment/Plan Assessment: 67 yo M with PMHx. 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 #chronic ulcer with possible osteomyelitis WBC 7.0 -> 4.4 glucose 214 ALP 140 CRP 3.0 ESR 85 Foot XR: There is subluxation of the PIP joint of the second toe with apparent fracture of the base of the middle phalanx. There is subtle irregularity of the cortex of the proximal phalanx. An overlying soft tissue ulceration is noted. 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 Foot MRI: Ulceration at the dorsal margin of the second toe PIP joint with osteomyelitis of the proximal and middle phalanges. -f/u post procedure note -f/u I+D biosy cx -monitor blood cx -check vascular doppler -f/u vascular surgery consult -holding antiociaglants for surgery #diabetes will be NPO for procedure -novolin sliding scale with D5 1/2 NS -f/u hgba1c #hld -atorvastatin #htn -verapamil, lisinopril, hctz, amlodipine, propanolol #dvt prophylaxis -ALPS in L leg #FULL CODE Problem List: 1. Foot osteomyelitis, right Pain Ratin Pain Location: R foot Pain Goal: Pain 4 or less Pain Plan: pain pathway Tomorrow's Labs & Rationales: cbc bep
--- NOTE | 2017-05-07 12:59 | PN- Att Addend ---
Attending Addendum Attending Brief Note Patient seen and examined, offers no complaints. Denies any pain in the foot. Vital Signs Date Time Temp Pulse Resp B/P B/P Pulse O2 O2 Flow FiO2 Mean Ox Delivery Rate 05/07 1035 7 128/76 05/07 1035 79 128/76 05/07 1034 79 128/76 05/07 1034 128/76 05/07 0714 98.0 79 20 128/76 96 05/07 0020 120/72 05/06 2046 98.1 95 20 150/74 95 Room Air 05/06 1942 97.6 108 20 148/76 97 Room Air 05/06 1933 97 Room Air 05/06 1843 96.6 86 18 153/77 97 on exam; aox3, nad. cv; s1,s2, rrr resp; clear abd; soft, nt, bs+ ext; no edema. skin: + open wound right 2nd metatarsal. Laboratory Tests 05/07 05/06 0605 1300 Chemistry Sodium (137 - 145 mmol/L) 141 Potassium (3.5 - 5.1 mmol/L) 4.0 Chloride (98 - 107 mmol/L) 106 Carbon Dioxide (22 - 30 mmol/L) 23 Anion Gap (5 - 16) 13 BUN (9 - 20 mg/dL) 19 Creatinine (0.7 - 1.2 mg/dL) 0.8 Estimated GFR (>60 ml/min) > 60 BUN/Creatinine Ratio (7 - 25 %) 23.8 Hematology CBC w Diff NO MAN DIFF REQ WBC (4.8 - 10.8 /CUMM) 4.4 L RBC (4.70 - 6.10 /CUMM) 3.47 L Hgb (14.0 - 18.0 G/DL) 11.4 L Hct (42 - 52 %) 33.3 L MCV (80.0 - 94.0 FL) 96.2 H MCH (27.0 - 31.0 PG) 32.9 H RDW (11.5 - 14.5 %) 13.6 Plt Count (130 - 400 /CUMM) 119 L MPV (7.4 - 10.4 FL) 9.1 Gran % (42.2 - 75.2 %) 70.4 Lymphocytes % (20.5 - 51.1 %) 16.0 L Monocytes % (1.7 - 9.3 %) 9.0 Eosinophils % (0 - 5 %) 4.2 Basophils % (0.0 - 2.0 %) 0.4 Absolute Granulocytes (1.4 - 6.5 /CUMM) 3.1 Absolute Lymphocytes (1.2 - 3.4 /CUMM) 0.7 L Absolute Monocytes (0.10 - 0.60 /CUMM) 0.4 Absolute Eosinophils (0.0 - 0.7 /CUMM) 0.2 Absolute Basophils (0.0 - 0.2 /CUMM) 0 PUBS MCHC (33.0 - 37.0 G/DL) 34.2 ESR Westergren (0 - 10 MM) 85 H A/P; 67 y/o M with pmh sig for DM, HTN, PVD,HLD, esophogeal varicies, gastritits , hep C, BCC, melanoma, admitted with right foot second metatarsal osteomyelitis. Patient to be taken to the OR with Dr. Dawson for debridement today. Has been watched off of antibiotics per ID recommendations. Patient on Levemir and sliding scale insulin for diabetes control. Please check hemoglobin A1c. Pain management adequate. Continue the rest of the medications. Please start pharmacologic DVT prophylaxis post procedure.
[2017-05-07 13:37] VITALS: BP 134/70
--- NOTE | 2017-05-07 19:21 | Operative Report ---
Operative/Inv Procedure Report Surgery Date: 05/07/17 Name of Procedure: 1 open incision and drainage deep to the deep fascia with exposure of the extensor and flexor tendon and tendon sheath multiple sites right foot 2 open, partial second ray resection right foot 3 intraoperative administration of ankle block anesthesia 4 excisional debridement Pre-Operative Diagnosis: 1 open necrotic wound right foot 2 osteomyelitis right foot Post-Operative Diagnosis: The same Estimated Blood Loss: less than 50ml Surgeon/Project Construction Assistant Manager: MALA TOLLIVER DPM Anesthesia: moderate sedation, block Operative/Procedure Note Note: After obtaining informed consent the patient was brought to the operating room and placed on the operating table in the supine position. The patient was then securely fastened to the operating table utilizing safety belt. After administration of IV sedation, 10 mL of 0.5% Marcaine plain was infiltrated about the patient's right ankle. The right foot and ankle within scrubbed prepped and draped in usual aseptic manner. Attention directed the right foot, where a large full-thickness chronic was identified. A 15 blade visualized sharply revised skin margins. The dissection was then carried down deep to the D fashion with exposure of the extensor and flexor tendon and tendon sheath multiple sites, both proximally and distally. All necrotic nonviable infected tissue sharply evacuated from the wound bed. A racquet-type incision encompassing the distal second ray was then incised with 15 blade and full- thickness flaps were developed. The metatarsophalangeal joint was disarticulated and specimen was sent for both microbiologic and pathologic inspection. The open wound was then irrigated with 3 L of normal sterile saline infused with 50,000 units of bacitracin. Following this, the foot was redraped and the surgeon's top gloves were changed clean gloves. Any bleeding vessels identified were cauterized or ligated as encountered. The wound was then packed with iodoform and 3-0 nylon retention sutures were placed. The foot was dressed with Xeroform 4 x 4's Kerlix and an Zach wrap. The patient was noted to tolerate both procedure and anesthesia well and the patient was transported from the operating room to recovery with vital signs stable.
[2017-05-07 21:21] VITALS: BP 148/98
[2017-05-08 06:25] VITALS: BP 140/70
--- NOTE | 2017-05-08 08:49 | PN- Housestaff ---
Himanshu LOPEZ,[facility] 05/08/17 0848: Subjective Follow-up For: osteomyelitis Subjective: No acute events overnight. States 5/10 pain after procedure. No other complaints. Review of Systems Constitutional: Reports: no symptoms. EENTM: Reports: no symptoms. Cardiovascular: Reports: no symptoms. Respiratory: Reports: no symptoms. Gastrointestinal: Reports: no symptoms. Genitourinary: Reports: no symptoms. Musculoskeletal: Reports: see HPI. Objective Last 24 Hrs of Vital Signs/I&O Vital Signs Date Time Temp Pulse Resp B/P B/P Pulse O2 O2 Flow FiO2 Mean Ox Delivery Rate 05/08 2233 97.9 83 20 130/64 95 Room Air 05/08 2048 83 132/64 05/08 1550 97.9 83 20 132/64 95 Room Air 05/08 1033 140/80 05/08 1033 80 140/70 05/08 1033 80 140/70 05/08 1032 80 140/70 05/08 0625 97.5 80 18 140/70 96 Room Air Intake & Output 05/09 0800 05/09 0000 05/08 1600 Intake Total 750 1140 Output Total 550 600 Balance 200 540 Intake, IV 250 400 Intake, Oral 500 740 Number 0 Bowel Movements Output, Urine 550 600 Patient 250 lb Weight Physical Exam General Appearance: Alert, Oriented X3, Cooperative, No Acute Distress Skin: R foot covered in wraps s/p surgery Cardiovascular: Regular Rate, Normal S1, Normal S2 Lungs: Clear to Auscultation, Normal Air Movement Abdomen: Normal Bowel Sounds, Soft, No Tenderness Current Medications: Current Medications Sig/Anh Start time Last Medication Dose Route Stop Time Status Admin Acetaminophen 650 MG .STK-MED ONE 05/08 0148 DC PO 05/08 0149 Acetaminophen 650 MG Q6P PRN 05/06 1430 AC 05/08 PO 0148 Acetaminophen 1,000 MG Q6P PRN 05/06 1430 AC 05/09 IV 0033 Amlodipine Besylate 10 MG DAILY 05/07 1000 AC 05/08 PO 1033 Atorvastatin Calcium 10 MG 1700 05/07 1700 AC 05/08 PO 1732 Heparin Sodium 5,000 UNIT Q8 05/08 1442 AC 05/08 (Porcine) SC 2049 Hydrochlorothiazide 25 MG DAILY 05/07 1000 AC 05/08 PO 1033 Hydromorphone HCl 0.5 MG Q8P PRN 05/06 1445 AC 05/08 IV 2049 Insulin Aspart 4 UNITS ONCE ONE 05/09 0015 DC 05/09 NM 05/09 0016 0032 Insulin Aspart 8 UNITS ONCE ONE 05/08 2345 CAN NM 05/08 2346 Insulin Aspart 0 TIDAC 05/06 1700 AC 05/08 SC 1732 Insulin Detemir 17 UNITS BID 05/07 0045 AC 05/08 SC 2107 Lisinopril 40 MG DAILY 05/07 1000 AC 05/08 PO 1033 Multivitamins 1 TAB DAILY 05/07 1000 AC 05/08 Therapeutic PO 1034 Nicotine 7 MG DAILY 05/08 1000 AC 05/08 TOP 1321 Propranolol HCl 20 MG BID 05/06 2200 AC 05/08 PO 2048 Vancomycin HCl 1,500 MG Q12 05/07 2199 AC 05/08 Sodium Chloride 250 ML IV 2047 Verapamil HCl 180 MG DAILY 05/07 1000 AC 05/08 PO 1033 Last 24 Hrs of Lab/Hipolito Results Last 24 Hrs of Labs/Mics: Laboratory Tests 05/08/17 0720: Anion Gap 14, Estimated GFR > 60, BUN/Creatinine Ratio 22.9, CBC w Diff NO MAN DIFF REQ, RBC 3.67 L, MCV 93.8, MCH 32.8 H, RDW 13.0, MPV 9.2, Gran % 88.1 H, Lymphocytes % 7.0 L, Monocytes % 4.7, Eosinophils % 0.1, Basophils % 0.1, Absolute Granulocytes 5.4, Absolute Lymphocytes 0.4 L, Absolute Monocytes 0.3, Absolute Eosinophils 0, Absolute Basophils 0, PUBS MCHC 35.0 Assessment/Plan Assessment: 67 yo M with PMHx. 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 #chronic ulcer with possible osteomyelitis of 2nd R toe most likely due to diabetes s/p surgery WBC 7.0 -> 4.4 -> 6.2 ALP 140 CRP 3.0 ESR 85 Foot XR: There is subluxation of the PIP joint of the second toe with apparent fracture of the base of the middle phalanx. There is subtle irregularity of the cortex of the proximal phalanx. An overlying soft tissue ulceration is noted. 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 Foot MRI: Ulceration at the dorsal margin of the second toe PIP joint with osteomyelitis of the proximal and middle phalanges. Vascular doppler:Patent stented superficial femoral artery. Nonvisualization of the anterior tibial and peroneal arteries, question occluded. Abnormal monophasic waveforms in the posterior tibial and dorsalis pedis arteries. -patient will go for wound closure on -f/u I+D biosy cx -monitor blood cx -f/u vascular surgery consult #diabetes hgba1c 8.0 Blood sugars running 300+ at times -novolin sliding scale with D5 /2 NS -call endocrinology consult #hld -atorvastatin #htn -verapamil, lisinopril, hctz, amlodipine, propanolol #dvt prophylaxis -ALPS in L leg #FULL CODE Problem List: 1. Foot osteomyelitis, right 2. Diabetes Pain Ratin Pain Location: R foot Pain Goal: Pain 4 or less Pain Plan: pain pathway Tomorrow's Labs & Rationales: cbc bep Dave LOPEZ,Yumiko 05/08/17 1156: Attending MD Review Statement Attending Statement Attending MD Statement: examined this patient, discuss w/resident/PA/RECREATION ASSISTANT, agreed w/resident/PA/RECREATION ASSISTANT, reviewed EMR data (avail), discussed with nursing, discussed with case mgmt, reviewed images, amended to note Attending Assessment/Plan: Patient seen and examined, denies any complaints. Status post debridement with Dr. Dawson yesterday. Has been started on vancomycin per ID recommendations. Vital Signs Date Time Temp Pulse Resp B/P B/P Pulse O2 O2 Flow FiO2 Mean Ox Delivery Rate 05/08 1033 140/80 05/08 1033 80 140/70 05/08 1033 80 140/70 05/08 1032 80 140/70 05/08 0625 97.5 80 18 140/70 96 Room Air 05/07 2120 98.7 82 18 148/98 98 Room Air 05/07 2113 82 148/98 05/07 1337 98.4 81 20 134/70 98 Room Air on exam; aox3, nad. cv: s1,s2, rrr resp; clear abd; soft, nt, bs+ ext; no edema. solomon wrap on right foot. Laboratory Tests 05/08 0720 Chemistry Sodium (137 - 145 mmol/L) 137 Potassium (3.5 - 5.1 mmol/L) 4.2 Chloride (98 - 107 mmol/L) 104 Carbon Dioxide (22 - 30 mmol/L) 19 L Anion Gap (5 - 16) 14 BUN (9 - 20 mg/dL) 16 Creatinine (0.7 - 1.2 mg/dL) 0.7 Estimated GFR (>60 ml/min) > 60 BUN/Creatinine Ratio (7 - 25 %) 22.9 Hematology CBC w Diff NO MAN DIFF REQ WBC (4.8 - 10.8 /CUMM) 6.2 RBC (4.70 - 6.10 /CUMM) 3.67 L Hgb (14.0 - 18.0 G/DL) 12.0 L Hct (42 - 52 %) 34.4 L MCV (80.0 - 94.0 FL) 93.8 MCH (27.0 - 31.0 PG) 32.8 H RDW (11.5 - 14.5 %) 13.0 Plt Count (130 - 400 /CUMM) 132 MPV (7.4 - 10.4 FL) 9.2 Gran % (42.2 - 75.2 %) 88.1 H Lymphocytes % (20.5 - 51.1 %) 7.0 L Monocytes % (1.7 - 9.3 %) 4.7 Eosinophils % (0 - 5 %) 0.1 Basophils % (0.0 - 2.0 %) 0.1 Absolute Granulocytes (1.4 - 6.5 /CUMM) 5.4 Absolute Lymphocytes (1.2 - 3.4 /CUMM) 0.4 L Absolute Monocytes (0.10 - 0.60 /CUMM) 0.3 Absolute Eosinophils (0.0 - 0.7 /CUMM) 0 Absolute Basophils (0.0 - 0.2 /CUMM) 0 PUBS MCHC (33.0 - 37.0 G/DL) 35.0 A/P; 67 y/o M with pmh sig for DM, HTN, PVD,HLD, esophogeal varicies, gastritits, hep C, BCC, melanoma, admitted with right foot second metatarsal osteomyelitis. Status post debridement to Dr. Dawson yesterday. Started on IV vancomycin. Will be taken to or again next week. We'll follow-up on the bone cultures and continue the current antibiotics. Blood sugars acceptable on current regimen. Please resume heparin subcutaneous for DVT prophylaxis and continue the rest of the medications.
[2017-05-08 09:08] LABS: ABSOLUTE BASOPHIL COUNT 0 /CUMM (0.0-0.2); ABSOLUTE EOSINOPHIL COUNT 0 /CUMM (0.0-0.7); ABSOLUTE GRANULOCYTE CT 5.4 /CUMM (1.4-6.5); ABSOLUTE LYMPH COUNT 0.4 /CUMM (1.2-3.4); ABSOLUTE MONOCYTE COUNT 0.3 /CUMM (0.10-0.60); BASOPHIL % 0.1 % (0.0-2.0); EOSINOPHIL % 0.1 % (0-5); HEMATOCRIT 34.4 % (42-52); MEAN CORPUSCULAR HGB 32.8 PG (27.0-31.0); MEAN CORPUSCULAR VOLUME 93.8 FL (80.0-94.0); MEAN PLATELET VOLUME 9.2 FL (7.4-10.4); PLATELET COUNT 132 /CUMM (130-400); RED BLOOD CELL CT 3.67 /CUMM (4.70-6.10); WHITE BLOOD CELL COUNT 6.2 /CUMM (4.8-10.8)
[2017-05-08 10:24] LABS: GRANULOCYTE % 88.1 % (42.2-75.2)
--- NOTE | 2017-05-08 13:24 | PN- Infect Dx ---
Subjective Subjective: Afebrile. He notes mild discomfort in the right foot. Objective Last 24 Hrs of Vital Signs/I&O Vital Signs Date Time Temp Pulse Resp B/P B/P Pulse O2 O2 Flow FiO2 Mean Ox Delivery Rate 05/08 1033 140/80 05/08 1033 80 140/70 05/08 1033 80 140/70 05/08 1032 80 140/70 05/08 0625 97.5 80 18 140/70 96 Room Air 05/07 2121 98.7 82 18 148/98 98 Room Air 05/07 2114 82 148/98 05/07 1337 98.4 81 20 134/70 98 Room Air Intake & Output 05/08 1600 05/08 0800 05/08 0000 Intake Total 480 480 Output Total 800 350 Balance -320 130 Intake, Oral 480 480 Output, Urine 800 350 Physical Exam Other Physical Findings: He appears comfortable in no acute distress Extremities right foot dressing intact; right leg with no edema or erythema Results Last 24 Hours of Lab Results: Laboratory Tests 05/08 0720 Chemistry Sodium (137 - 145 mmol/L) 137 Potassium (3.5 - 5.1 mmol/L) 4.2 Chloride (98 - 107 mmol/L) 104 Carbon Dioxide (22 - 30 mmol/L) 19 L Anion Gap (5 - 16) 14 BUN (9 - 20 mg/dL) 16 Creatinine (0.7 - 1.2 mg/dL) 0.7 Estimated GFR (>60 ml/min) > 60 BUN/Creatinine Ratio (7 - 25 %) 22.9 Hematology CBC w Diff NO MAN DIFF REQ WBC (4.8 - 10.8 /CUMM) 6.2 RBC (4.70 - 6.10 /CUMM) 3.67 L Hgb (14.0 - 18.0 G/DL) 12.0 L Hct (42 - 52 %) 34.4 L MCV (80.0 - 94.0 FL) 93.8 MCH (27.0 - 31.0 PG) 32.8 H RDW (11.5 - 14.5 %) 13.0 Plt Count (130 - 400 /CUMM) 132 MPV (7.4 - 10.4 FL) 9.2 Gran % (42.2 - 75.2 %) 88.1 H Lymphocytes % (20.5 - 51.1 %) 7.0 L Monocytes % (1.7 - 9.3 %) 4.7 Eosinophils % (0 - 5 %) 0.1 Basophils % (0.0 - 2.0 %) 0.1 Absolute Granulocytes (1.4 - 6.5 /CUMM) 5.4 Absolute Lymphocytes (1.2 - 3.4 /CUMM) 0.4 L Absolute Monocytes (0.10 - 0.60 /CUMM) 0.3 Absolute Eosinophils (0.0 - 0.7 /CUMM) 0 Absolute Basophils (0.0 - 0.2 /CUMM) 0 PUBS MCHC (33.0 - 37.0 G/DL) 35.0 Last 24 Hours of Hipolito Results: OR culture May 07 right second toe bone pending Blood cultures 2 May 06 negative Assessment/Plan Impression: Stable, status post open partial second ray resection of the right foot yesterday for presumed osteomyelitis. He remains afebrile with white blood cell count normal on empiric treatment with Vancomycin pending the OR culture. Suggestion: 1. Follow-up OR culture 2. Vascular surgery follow-up regarding his arterial Doppler results 3. Await probable return to the OR next week 4. Continue Vancomycin pending above
[2017-05-08 15:50] VITALS: BP 132/64
[2017-05-08 22:33] VITALS: BP 130/64
[2017-05-09 06:42] VITALS: BP 128/79
--- NOTE | 2017-05-09 07:26 | PN- Housestaff ---
Edilmastaceyyadira,[facility] 05/09/17 0726: Subjective Follow-up For: #Osteomyelitis rt. lower extrimity s/p debridement Complaints: Pain Subjective: Patient seen and examined this morning, he is eating his breakfast, complained of increase pain in the right LE, 7-12/04, asking to increase the frequency of pain medication. Review of Systems Constitutional: Reports: no symptoms. Musculoskeletal: Reports: see HPI. Objective Last 24 Hrs of Vital Signs/I&O Vital Signs Date Time Temp Pulse Resp B/P B/P Pulse O2 O2 Flow FiO2 Mean Ox Delivery Rate 05/09 0921 132/82 05/09 0920 132/82 05/09 0920 132/82 05/09 0920 132/82 05/09 0642 97.9 79 18 128/79 98 Room Air 05/08 2233 97.9 83 20 130/64 95 Room Air 05/08 2048 83 132/64 05/08 1550 97.9 83 20 132/64 95 Room Air 05/08 1033 140/80 05/08 1033 80 140/70 05/08 1033 80 140/70 Intake & Output 05/09 1600 05/09 0800 05/09 0000 Intake Total 120 750 Output Total 350 550 Balance -230 200 Intake, IV 250 Intake, Oral 120 500 Output, Urine 350 550 Patient 250 lb Weight Physical Exam General Appearance: Alert, Oriented X3, Cooperative, Mild Distress Skin: No Rashes, No Breakdown Cardiovascular: Regular Rate, Normal S1, Normal S2, No Murmurs Lungs: Clear to Auscultation, Normal Air Movement Abdomen: Normal Bowel Sounds, Soft, No Tenderness Extremities: Right foot rapped with clean bandage Last 24 Hrs of Lab/Hipolito Results Last 24 Hrs of Labs/Mics: Laboratory Tests 05/09/17 0650: Anion Gap 12, Estimated GFR > 60, BUN/Creatinine Ratio 22.5, CBC w Diff Pending, WBC Pending, RBC Pending, Hgb Pending, Hct Pending, MCV Pending, MCH Pending, RDW Pending, Plt Count Pending, MPV Pending, PUBS MCHC Pending Assessment/Plan Assessment: 67 yo M with PMHx. 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 #Osteomyelitis of 2nd R toe s/p debridement: Patient is going for another debridement with possible closure or wound vac on , will continue current antibiotic and increase the frequency of diluded #diabetes hgba1c 8.0 Blood sugars running 300+ at times -novolin sliding scale with D5 1/2 NS -call endocrinology consult #hld -atorvastatin #htn -verapamil, lisinopril, hctz, amlodipine, propanolol #dvt prophylaxis -ALPS in L leg #FULL CODE Problem List: 1. Foot osteomyelitis, right 2. Diabetes Pain Ratin Pain Location: rt. foot Pain Goal: Remain pain free Pain Plan: tylenol, diluded Tomorrow's Labs & Rationales: cbc, bep DVT/Prophylaxis: pharmacological Joao LOPEZ,Amir 05/09/17 1033: Attending MD Review Statement Attending Statement Attending MD Statement: examined this patient, discuss w/resident/PA/SPRING MAKER, agreed w/resident/PA/SPRING MAKER, reviewed EMR data (avail), discussed with nursing Attending Assessment/Plan: Pt was seen and evaluated. Currently reports doing OK. No overnight issues. Remained afebilre --cont current abx -- f/u Cx -- rest of the plan as per resident's note
[2017-05-09 09:03] LABS: ABSOLUTE BASOPHIL COUNT 0 /CUMM (0.0-0.2); ABSOLUTE EOSINOPHIL COUNT 0.1 /CUMM (0.0-0.7); ABSOLUTE GRANULOCYTE CT 3.7 /CUMM (1.4-6.5); ABSOLUTE LYMPH COUNT 0.3 /CUMM (1.2-3.4); ABSOLUTE MONOCYTE COUNT 0.4 /CUMM (0.10-0.60); BASOPHIL % 0.2 % (0.0-2.0); EOSINOPHIL % 2.4 % (0-5); GRANULOCYTE % 81.6 % (42.2-75.2); HEMATOCRIT 32.4 % (42-52); MEAN CORPUSCULAR HGB 33.2 PG (27.0-31.0); MEAN CORPUSCULAR HGB CONC 34.9 G/DL (33.0-37.0); MEAN CORPUSCULAR VOLUME 94.9 FL (80.0-94.0); MEAN PLATELET VOLUME 8.7 FL (7.4-10.4); RBC DISTRIBUTION WIDTH 13.3 % (11.5-14.5); RED BLOOD CELL CT 3.41 /CUMM (4.70-6.10); WHITE BLOOD CELL COUNT 4.5 /CUMM (4.8-10.8)
--- NOTE | 2017-05-09 10:17 | PN- Infect Dx ---
Subjective Subjective: Afebrile. He notes mild discomfort in the right foot. Objective Last 24 Hrs of Vital Signs/I&O Vital Signs Date Time Temp Pulse Resp B/P B/P Pulse O2 O2 Flow FiO2 Mean Ox Delivery Rate 05/09 0821 132/82 05/09 0820 132/82 05/09 0920 132/82 05/09 0920 132/82 05/09 0642 97.9 79 18 128/79 98 Room Air 05/08 2233 97.9 83 20 130/64 95 Room Air 05/08 2048 83 132/64 05/08 1550 97.9 83 20 132/64 95 Room Air 05/08 1033 140/80 05/08 1033 80 140/70 05/08 1033 80 140/70 05/08 1032 80 140/70 Intake & Output 05/09 1600 05/09 0800 05/09 0000 Intake Total 120 750 Output Total 350 550 Balance -230 200 Intake, IV 250 Intake, Oral 120 500 Output, Urine 350 550 Patient 250 lb Weight Physical Exam Other Physical Findings: He appears comfortable in no acute distress Extremities right foot dressing intact Results Last 24 Hours of Lab Results: Laboratory Tests 05/09 0650 Chemistry Sodium (137 - 145 mmol/L) 137 Potassium (3.5 - 5.1 mmol/L) 3.9 Chloride (98 - 107 mmol/L) 103 Carbon Dioxide (22 - 30 mmol/L) 22 Anion Gap (5 - 16) 12 BUN (9 - 20 mg/dL) 18 Creatinine (0.7 - 1.2 mg/dL) 0.8 Estimated GFR (>60 ml/min) > 60 BUN/Creatinine Ratio (7 - 25 %) 22.5 Hematology CBC w Diff Pending WBC Pending RBC Pending Hgb Pending Hct Pending MCV Pending MCH Pending RDW Pending Plt Count Pending MPV Pending PUBS MCHC Pending Last 24 Hours of Hipolito Results: Blood cultures May 06 negative OR culture May 07 labeled right toe bone positive for Staph aureus Assessment/Plan Impression: Stable, status post open partial second ray resection of the right foot 2 days ago for osteomyelitis, with his preliminary OR culture positive for Staph aureus. He remains afebrile with white blood cell count normal on Vancomycin pending the final culture. He is scheduled for a return to the OR next week and will require a prolonged course of antibiotics for residual osteomyelitis. Suggestion: 1. Follow-up final OR culture 2. Vascular surgery follow-up regarding his arterial Doppler results 3. Await return to the OR on May 12 4. Would proceed with placement of a PICC after the weekend 5. Continue Vancomycin pending above Karina Frey MD is covering until May 12
[2017-05-09 12:01] LABS: PLATELET COUNT 108 /CUMM (130-400)
[2017-05-09 14:58] VITALS: BP 140/80
[2017-05-09 22:20] VITALS: BP 136/80
[2017-05-10 08:08] VITALS: BP 149/83
[2017-05-10 08:29] LABS: ABSOLUTE BASOPHIL COUNT 0 /CUMM (0.0-0.2); ABSOLUTE EOSINOPHIL COUNT 0.1 /CUMM (0.0-0.7); ABSOLUTE GRANULOCYTE CT 2.9 /CUMM (1.4-6.5); ABSOLUTE LYMPH COUNT 0.4 /CUMM (1.2-3.4); ABSOLUTE MONOCYTE COUNT 0.3 /CUMM (0.10-0.60); BASOPHIL % 0.4 % (0.0-2.0); EOSINOPHIL % 2.3 % (0-5); GRANULOCYTE % 77.3 % (42.2-75.2); HEMATOCRIT 33.6 % (42-52); MEAN CORPUSCULAR HGB 32.8 PG (27.0-31.0); MEAN CORPUSCULAR HGB CONC 34.7 G/DL (33.0-37.0); MEAN CORPUSCULAR VOLUME 94.3 FL (80.0-94.0); MEAN PLATELET VOLUME 8.9 FL (7.4-10.4); PLATELET COUNT 108 /CUMM (130-400); RBC DISTRIBUTION WIDTH 13.3 % (11.5-14.5); RED BLOOD CELL CT 3.56 /CUMM (4.70-6.10); WHITE BLOOD CELL COUNT 3.8 /CUMM (4.8-10.8)
--- NOTE | 2017-05-10 09:54 | PN- Housestaff ---
Himanshu LOPEZ,[facility] 05/10/17 0954: Subjective Follow-up For: osteomyelitis Subjective: No acute events O/N. Says he is doing well. 06/06 pain. Review of Systems Constitutional: Reports: no symptoms. Cardiovascular: Reports: no symptoms. Respiratory: Reports: no symptoms. Gastrointestinal: Reports: no symptoms. Genitourinary: Reports: no symptoms. Musculoskeletal: Reports: see HPI. Skin: Reports: see HPI. Objective Last 24 Hrs of Vital Signs/I&O Vital Signs Date Time Temp Pulse Resp B/P B/P Pulse O2 O2 Flow FiO2 Mean Ox Delivery Rate 05/10 2140 98.5 93 19 132/80 95 Room Air 05/10 1515 98.1 93 20 130/70 98 Room Air 05/10 0944 146/80 05/10 0808 99.1 85 18 149/83 99 Room Air Intake & Output 05/10 1600 05/10 0800 05/10 0000 Intake Total 1200 350 Output Total 800 700 900 Balance 400 -350 -900 Intake, IV 500 250 Intake, Oral 700 100 Number 0 Bowel Movements Output, Urine 800 700 900 Physical Exam General Appearance: Alert, Oriented X3, Cooperative Cardiovascular: mild tachy Lungs: Clear to Auscultation, Normal Air Movement Abdomen: Normal Bowel Sounds, Soft, No Tenderness Extremities: R foot covered Vascular: 2+ radial pulses Current Medications: Current Medications Sig/Anh Start time Last Medication Dose Route Stop Time Status Admin Acetaminophen 650 MG Q6P PRN 05/06 1430 AC 05/08 PO 0148 Acetaminophen 1,000 MG Q6P PRN 05/06 1430 AC 05/09 IV 0033 Amlodipine Besylate 10 MG DAILY 05/07 1000 AC 05/10 PO 0944 Atorvastatin Calcium 10 MG 1700 05/07 1700 AC 05/10 PO 1715 Heparin Sodium 5,000 UNIT Q8 05/08 1442 AC 05/10 (Porcine) SC 1322 Hydrochlorothiazide 25 MG DAILY 05/07 1000 AC 05/10 PO 0944 Hydromorphone HCl 0.5 MG Q4P PRN 05/09 0800 AC 05/10 IV 1835 Insulin Aspart 4 UNITS ONCE ONE 05/09 2345 DC 05/10 FL 05/09 2346 0044 Insulin Aspart 0 TIDAC 05/06 1700 AC 05/10 SC 1715 Insulin Detemir 17 UNITS BID 05/07 0045 AC 05/10 FL 0748 Lisinopril 40 MG DAILY 05/07 1000 AC 05/10 PO 0944 Multivitamins 1 TAB DAILY 05/07 Therapeutic PO 0944 Nicotine 7 MG DAILY 05/08 1000 AC 05/10 [facility] 0945 Propranolol HCl 20 MG BID 05/06 2199 AC 05/10 PO 0944 Vancomycin HCl 1,500 MG Q12 05/07 2199 AC 05/10 Sodium Chloride 250 ML IV 1045 Verapamil HCl 180 MG DAILY 05/07 1000 AC 05/10 PO 0944 Last 24 Hrs of Lab/Hipolito Results Last 24 Hrs of Labs/Mics: Laboratory Tests 05/10/17 0602: CBC w Diff NO MAN DIFF REQ, RBC 3.56 L, MCV 94.3 H, MCH 32.8 H, RDW 13.3, MPV 8.9, Gran % 77.3 H, Lymphocytes % 11.0 L, Monocytes % 9.0, Eosinophils % 2.3, Basophils % 0.4, Absolute Granulocytes 2.9, Absolute Lymphocytes 0.4 L, Absolute Monocytes 0.3, Absolute Eosinophils 0.1, Absolute Basophils 0, PUBS MCHC 34.7 Assessment/Plan Assessment: 67 yo M with PMHx. 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 #chronic ulcer with possible osteomyelitis of 2nd R toe most likely due to diabetes s/p surgery WBC 7.0 -> 3.8 ALP 140 CRP 3.0 ESR 85 Foot XR: There is subluxation of the PIP joint of the second toe with apparent fracture of the base of the middle phalanx. There is subtle irregularity of the cortex of the proximal phalanx. An overlying soft tissue ulceration is noted. 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 Foot MRI: Ulceration at the dorsal margin of the second toe PIP joint with osteomyelitis of the proximal and middle phalanges. Vascular doppler:Patent stented superficial femoral artery. Nonvisualization of the anterior tibial and peroneal arteries, question occluded. Abnormal monophasic waveforms in the posterior tibial and dorsalis pedis arteries. Cx growing MRSA -patient will go for wound closure on -cont vanco -vanc trough -PICC line needed tomorrow #diabetes hgba1c 8.0 Blood sugars running 300+ at times -novolin sliding scale with D5 1/2 NS -call endocrinology consult #hld -atorvastatin #htn -verapamil, lisinopril, hctz, amlodipine, propanolol #dvt prophylaxis -ALPS in L leg #FULL CODE Problem List: 1. Foot osteomyelitis, right Pain Ratin Pain Location: R ft Pain Goal: Pain 4 or less Pain Plan: Pain pathway Tomorrow's Labs & Rationales: cbc bep Joao LOPEZ,Amir 05/10/17 1208: Attending MD Review Statement Attending Statement Attending MD Statement: examined this patient, discuss w/resident/PA/ROAD FREIGHT BRAKE COUPLER, agreed w/resident/PA/ROAD FREIGHT BRAKE COUPLER, reviewed EMR data (avail), discussed with nursing Attending Assessment/Plan: Pt was seen. No overnight issues, remains afebrile -- cont Vanco -- appreciate ID input -- rest of the plan as per resident's note
--- NOTE | 2017-05-10 13:03 | PN- Infect Dx ---
Subjective Subjective: No fever;no discomfort R foot. Review of Systems Comments: 12 points reviewed as noted, otherwise negative. Objective Last 24 Hrs of Vital Signs/I&O Vital Signs Date Time Temp Pulse Resp B/P B/P Pulse O2 O2 Flow FiO2 Mean Ox Delivery Rate 05/10 0944 146/80 05/10 0808 99.1 85 18 149/83 99 Room Air 05/09 2221 93 140/85 05/09 2220 98.6 85 18 136/80 97 Room Air 05/09 1458 98.5 84 18 140/80 97 Room Air Intake & Output 05/10 1600 05/10 0800 05/10 0000 Intake Total 350 Output Total 500 700 900 Balance -500 -350 -900 Intake, IV 250 Intake, Oral 100 Output, Urine 500 700 900 Physical Exam Other Physical Findings: Afebrile. He is awake and alert in no acute distress. Skin reveals no rash. HEENT negative. Neck is supple with no adenopathy. Lungs are clear. Heart regular rhythm with no murmur. Abdomen is soft, nontender with positive bowel sounds. Back no CVA tenderness. Extremities status post right great toe amputation, swelling and erythema; pulses 1+. Neuro neuropathy both feet. Results Last 24 Hours of Lab Results: Laboratory Tests 05/10 0602 Hematology CBC w Diff NO MAN DIFF REQ WBC (4.8 - 10.8 /CUMM) 3.8 L RBC (4.70 - 6.10 /CUMM) 3.56 L Hgb (14.0 - 18.0 G/DL) 11.7 L Hct (42 - 52 %) 33.6 L MCV (80.0 - 94.0 FL) 94.3 H MCH (27.0 - 31.0 PG) 32.8 H RDW (11.5 - 14.5 %) 13.3 Plt Count (130 - 400 /CUMM) 108 L MPV (7.4 - 10.4 FL) 8.9 Gran % (42.2 - 75.2 %) 77.3 H Lymphocytes % (20.5 - 51.1 %) 11.0 L Monocytes % (1.7 - 9.3 %) 9.0 Eosinophils % (0 - 5 %) 2.3 Basophils % (0.0 - 2.0 %) 0.4 Absolute Granulocytes (1.4 - 6.5 /CUMM) 2.9 Absolute Lymphocytes (1.2 - 3.4 /CUMM) 0.4 L Absolute Monocytes (0.10 - 0.60 /CUMM) 0.3 Absolute Eosinophils (0.0 - 0.7 /CUMM) 0.1 Absolute Basophils (0.0 - 0.2 /CUMM) 0 PUBS MCHC (33.0 - 37.0 G/DL) 34.7 Last 24 Hours of Hipolito Results: ORDERED: XTRMOR COMMENT: ADDITIONAL INFORMATION: BONE Procedure Result > GRAM STAIN Final 05/08/17-1332 WHITE BLOOD CELLS FROM THIO GRAM POSITIVE COCCI FROM THIO CLUSTERS > EXTREMITIES OR SPECIMEN Final 05/10/17-1104 AFTER OVERNIGHT INCUBATION IN THIO BROTH METH RESIST STAPH AUREUS ISOLATED Called to/Readback by JUAN MANUEL by [email or web address] 05/10/17 1100 1. METH RESIST STAPH AUREUS RX ABN ------ --- 1. METH RESIST STAPH AUREUS RX AB ------ -- CEFAZOLIN R AMOXICILLIN/CLAVULINIC ACID R AMPICILLIN/SULBACTAM R TETRACYCLINE S TRIMETHOPRIM/SULFAMETHOXAZOLE S AZITHROMYCIN R CLINDAMYCIN S ERYTHROMYCIN R OXACILLIN R VANCOMYCIN S ATTENTIONATTENTIONPLACE PATIENT ON CONTACT PRECAUTIONS Recent Imaging Studies: X ray R foot IMPRESSION: Ulceration at the dorsal margin of the second toe PIP joint with osteomyelitis of the proximal and middle phalanges. DICTATED BY: Shaun Shahid MD DATE/TIME DICTATED:05/06/171728 WOUND SPECIALIST:PAXTON DATE/TIME TRANSCRIBED:05/06/171728 Assessment/Plan Impression: 67 yo M with PMHx. of DM, HTN, PVD,HLD, esophogeal varicies, gastritits, hep C, BCC, melanoma admitted 05/06/17. Stable, status post open partial second ray resection of the right foot 3 days ago for osteomyelitis, with his preliminary OR culture positive for MRSA. He remains afebrile with white blood cell count normal on Vancomycin. He is scheduled for a return to the OR next week and will require a prolonged course of antibiotics for residual osteomyelitis. Suggestion: 1. Follow-up vascular surgery recom. 3. Await return to the OR on May 12 4. Would proceed with placement of a PICC after the weekend 5. Continue iv Vancomycin; vancomycin trough 05/11.
[2017-05-10 15:15] VITALS: BP 130/70
[2017-05-10 21:40] VITALS: BP 132/80
[2017-05-11 06:30] VITALS: BP 134/74
--- NOTE | 2017-05-11 07:35 | PN- Housestaff ---
Himanshu LOPEZ,[facility] 05/11/17 0734: Subjective Follow-up For: Osteomyelitis Subjective: No acute events overngiht. States some constipation. Pain well controlled. Review of Systems Constitutional: Reports: no symptoms. Cardiovascular: Reports: no symptoms. Respiratory: Reports: no symptoms. Gastrointestinal: Reports: no symptoms. Genitourinary: Reports: no symptoms. Musculoskeletal: Reports: see HPI. Skin: Reports: see HPI. Objective Last 24 Hrs of Vital Signs/I&O Vital Signs Date Time Temp Pulse Resp B/P B/P Pulse O2 O2 Flow FiO2 Mean Ox Delivery Rate 05/11 1514 98.5 87 20 132/78 98 Room Air 05/11 1310 Room Air Room Air 05/11 1305 Room Air Room Air 05/11 1011 85 132/64 05/11 1011 85 132/64 05/11 1010 85 132/64 05/11 1010 85 132/64 05/11 0630 98.4 87 20 134/74 97 05/10 2230 93 132/80 05/10 2140 98.5 93 19 132/80 95 Room Air Intake & Output 05/11 1600 05/11 0800 05/11 0000 Intake Total 880 220 Output Total 1350 675 925 Balance -470 -455 -925 Intake, IV 280 20 Intake, Oral 600 200 Output, Urine 1350 675 925 Physical Exam General Appearance: Alert, Oriented X3, Cooperative Skin: R foot covered in dressing Cardiovascular: Regular Rate, Normal S1, Normal S2 Lungs: Clear to Auscultation, Normal Air Movement Abdomen: Soft, No Tenderness, decreased bowel sounds Extremities: 2+ radial pulses Current Medications: Current Medications Sig/Anh Start time Last Medication Dose Route Stop Time Status Admin Acetaminophen 650 MG Q6P PRN 05/06 1430 AC 05/08 PO 0148 Acetaminophen 1,000 MG Q6P PRN 05/06 1430 AC 05/09 IV 0033 Amlodipine Besylate 10 MG DAILY 05/07 1000 AC 05/11 PO 1011 Atorvastatin Calcium 10 MG 1700 05/07 1700 AC 05/11 PO 1745 Dextrose/Sodium 1,000 ML Q13H 05/12 0000 AC Chloride IV Heparin Sodium 5,000 UNIT Q8 05/08 1442 AC 05/11 (Porcine) SC 05/12 0000 1450 Hydrochlorothiazide 25 MG DAILY 05/07 1000 AC 05/11 PO 1010 Hydromorphone HCl 0.5 MG Q4P PRN 05/09 0800 AC 05/11 IV 1959 Insulin Aspart 0 Q4 05/12 0000 AC SC Insulin Aspart 0 AT BEDTIME 05/11 2200 AC SC 05/11 2355 Insulin Aspart 0 TIDAC 05/06 1700 AC 05/11 SC 05/11 2355 1745 Insulin Detemir 8 UNITS BID 05/11 2200 AC SC Insulin Detemir 17 UNITS BID 05/07 0045 DC 05/11 SC 1010 Lisinopril 40 MG DAILY 05/07 1000 AC 05/11 PO 1011 Multivitamins 1 TAB DAILY 05/07 1000 AC 05/11 Therapeutic PO 1011 Nicotine 7 MG DAILY 05/08 1000 AC 05/11 TOP 1011 Polyethylene Glycol 17 GM DAILY PRN 05/11 0800 AC 05/11 PO 1010 Propranolol HCl 20 MG BID 05/06 2200 AC 05/11 PO 1010 Senna 187 MG AT BEDTIME PRN 05/11 0800 AC PO Vancomycin HCl 1,500 MG Q12 05/07 2200 AC 05/11 Sodium Chloride 250 ML IV 1210 Verapamil HCl 180 MG DAILY 05/07 1000 AC 05/11 PO 1010 Last 24 Hrs of Lab/Hipolito Results Last 24 Hrs of Labs/Mics: Laboratory Tests 05/11/17 0611: Anion Gap 13, Estimated GFR > 60, BUN/Creatinine Ratio 23.8, CBC w Diff NO MAN DIFF REQ, RBC 3.50 L, MCV 94.6 H, MCH 32.4 H, RDW 13.3, MPV 8.8, Gran % 79.5 H, Lymphocytes % 8.8 L, Monocytes % 9.3, Eosinophils % 2.2, Basophils % 0.2, Absolute Granulocytes 2.9, Absolute Lymphocytes 0.3 L, Absolute Monocytes 0.3, Absolute Eosinophils 0.1, Absolute Basophils 0, PUBS MCHC 34.2, Vancomycin Trough 17.8 Assessment/Plan Assessment: 67 yo M with PMHx. 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 #chronic ulcer with possible osteomyelitis of 2nd R toe most likely due to diabetes s/p surgery WBC 7.0 -> 3.6 ALP 140 CRP 3.0 ESR 85 Foot XR: There is subluxation of the PIP joint of the second toe with apparent fracture of the base of the middle phalanx. There is subtle irregularity of the cortex of the proximal phalanx. An overlying soft tissue ulceration is noted. 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 Foot MRI: Ulceration at the dorsal margin of the second toe PIP joint with osteomyelitis of the proximal and middle phalanges. Vascular doppler:Patent stented superficial femoral artery. Nonvisualization of the anterior tibial and peroneal arteries, question occluded. Abnormal monophasic waveforms in the posterior tibial and dorsalis pedis arteries. Cx growing MRSA Vanc trough 17.8 -patient will go for wound closure tomorrow -cont vanco -next vanc trough 05/13 in AM -received PICC line today #hyponatremia Na 133 -cont to monitor #diabetes hgba1c 8.0 Blood sugars running 300+ at times -novolin sliding scale with D5 / NS -call endocrinology consult #hld -atorvastatin #htn -verapamil, lisinopril, hctz, amlodipine, propanolol #dvt prophylaxis -ALPS in L leg #FULL CODE Problem List: 1. Foot osteomyelitis, right Pain Ratin Pain Location: RT foot Pain Goal: Pain 4 or less Pain Plan: pain pathway Tomorrow's Labs & Rationales: cbc bep Pam Rivera 05/11/17 1336: Attending MD Review Statement Attending Statement Attending MD Statement: examined this patient, discuss w/resident/PA/ADMINISTRATION MANAGER, agreed w/resident/PA/ADMINISTRATION MANAGER, discussed with family, reviewed EMR data (avail), discussed with nursing, discussed with case mgmt, reviewed images, amended to note Attending Assessment/Plan: A/P; 67 y/o M with pmh sig for DM, HTN, PVD,HLD, esophogeal varicies, gastritits, hep C, BCC, melanoma, admitted with right foot second metatarsal osteomyelitis. Podiatry and infectius disease consulted. Status post debridement to Dr. Dawson. Plan for OR tomorrow. Continue IV vancomycin. follow-up on the bone cultures and infectious disease. Blood sugars acceptable on current regimen. heparin subcutaneous for DVT prophylaxis and continue current care..
[2017-05-11 08:39] LABS: ABSOLUTE BASOPHIL COUNT 0 /CUMM (0.0-0.2); ABSOLUTE EOSINOPHIL COUNT 0.1 /CUMM (0.0-0.7); ABSOLUTE GRANULOCYTE CT 2.9 /CUMM (1.4-6.5); ABSOLUTE LYMPH COUNT 0.3 /CUMM (1.2-3.4); ABSOLUTE MONOCYTE COUNT 0.3 /CUMM (0.10-0.60); BASOPHIL % 0.2 % (0.0-2.0); EOSINOPHIL % 2.2 % (0-5); GRANULOCYTE % 79.5 % (42.2-75.2); HEMATOCRIT 33.1 % (42-52); MEAN CORPUSCULAR HGB 32.4 PG (27.0-31.0); MEAN CORPUSCULAR HGB CONC 34.2 G/DL (33.0-37.0); MEAN CORPUSCULAR VOLUME 94.6 FL (80.0-94.0); MEAN PLATELET VOLUME 8.8 FL (7.4-10.4); RBC DISTRIBUTION WIDTH 13.3 % (11.5-14.5); WHITE BLOOD CELL COUNT 3.6 /CUMM (4.8-10.8)
--- NOTE | 2017-05-11 08:46 | Cons- Endocrinology ---
General Information and HPI Consulting Request Date of Consult: 05/11/17 Requested By: medical team Reason for Consult: uncontrolled diabetes Source of Information: patient, old records Exam Limitations: no limitations History of Present Illness: This 67-year-old male has known history of diabetes type 2 not well controlled. He came to the hospital because of swelling and redness of his right foot. Apparently he developed an ulcer in the right foot and saw Dr. Dawson as an outpatient. And at first was treated conservatively. However after about 2 weeks the foot blew up and became red and swollen. Patient has undergone a surgical procedure in the OR with debridement of the foot. He was felt to have both cellulitis and osteomyelitis. As an outpatient this patient was taken Lantus 34 units once a day, metformin 850 mg twice a day and sliding scale NovoLog. In the hospital the patient is on Levemir 17 units twice a day. He is also on sliding scale NovoLog sliding with 2 units for 151-204 units for 201-250. Fingerstick blood sugars yesterday were 185 before breakfast, 211 before lunch, 262 before dinner and 254 at bedtime. This morning his fingerstick blood sugar is 214. The patient feels okay. He denies any fever or chills. He has had no nausea vomiting. Allergies/Medications Allergies: Coded Allergies: No Known Allergies (12/17/15) Home Med List: Amlodipine Besylate 10 MG TABLET 1 TAB PO DAILY BP (Reported) Aspirin (Ecotrin*) 81 MG TABLET.DR 1 TAB PO DAILY HEART/BLOOD (Reported) Hydrochlorothiazide 25 MG TABLET 1 TAB PO DAILY BP (Reported) Insulin Aspart, Recombinant (Novolog Flexpen) 100 UNIT/1 ML INSULN.PEN DIABETES (Reported) Less then 80 No insulin 80-150 5 Units 151-200 7 units 201-250 9 units 251-300 11 units 301-350 13 units 351-400 15 units more then 400 17 units and call your doctor Insulin Glargine,Hum.rec.anlog (Kathy Corrales) 300 UNIT/1 ML INSULN.PEN 34 UNITS SC QAM DIABETES (Reported) Lisinopril 40 MG TABLET 1 TAB PO DAILY BP (Reported) Metformin HCl 850 MG TABLET 1 TAB PO BID DIABETES (Reported) Multivitamin (Daily Value) 1 EACH TABLET 1 TAB PO DAILY VITAMIN SUPPORT ( Reported) Propranolol HCl 20 MG TABLET 1 TAB PO BID BP (Reported) Simvastatin (Simvastatin*) 10 MG TABLET 1 TAB PO QPM CHOLESTEROL (Reported) Verapamil HCl (Verapamil ER) 180 MG TABLET.ER 1 TAB PO DAILY BP (Reported) Past History Travel History Traveled to [place] past 21 day No Medical History Blood Transfusion Hx: No Neurological: NONE EENT: NONE Cardiovascular: hypertension, hyperlipidemia Respiratory: NONE Gastrointestinal: esophageal varices gastritis Hepatic: hepatitis C Renal: NONE Musculoskeletal: fracture Psychiatric: NONE Endocrine: diabetes Blood Disorders: NONE Cancer(s): basal cell carcinoma, melanoma CONTROL PANEL TESTER/Reproductive: NONE Surgical History Surgical History: status post right shoulder hemiarthroplasty March 2010 R SFA stent and angioplasty right great toe amputation December 2015 Psychosocial History Where Do You Live? Home Services at Home: None Smoking Status: Current Everyday Smoker ETOH Use: denies use Illicit Drug Use: denies illicit drug use Functional Ability ADLs Independent: dressing, eating, toileting, bathing. Ambulation: independent IADLs Independent: shopping, housework, finances, food prep, telephone, transportation , medication admin. Exam & Diagnostic Data Last 24 Hrs of Vital Signs/I&O Vital Signs Date Time Temp Pulse Resp B/P B/P Pulse O2 O2 Flow FiO2 Mean Ox Delivery Rate 05/11 0630 98.4 87 20 134/74 97 05/10 2230 93 132/80 05/10 2140 98.5 93 19 132/80 95 Room Air 05/10 1515 98.1 93 20 130/70 98 Room Air 05/10 0944 146/80 Intake & Output 05/11 1600 05/11 0800 05/11 0000 Intake Total 220 Output Total 675 925 Balance -455 -925 Intake, IV 20 Intake, Oral 200 Output, Urine 675 925 Vital Signs Date Time Temp Pulse Resp B/P B/P Pulse O2 O2 Flow FiO2 Mean Ox Delivery Rate 05/11 0630 98.4 87 20 134/74 97 05/10 2230 93 132/80 05/10 2140 98.5 93 19 132/80 95 Room Air 05/10 1515 98.1 93 20 130/70 98 Room Air 05/10 0944 146/80 Intake & Output 05/11 1600 05/11 0800 05/11 0000 Intake Total 220 Output Total 675 925 Balance -455 -925 Intake, IV 20 Intake, Oral 200 Output, Urine 675 925 Physical Exam General Appearance: alert, awake, comfortable Neck: normal inspection Respiratory: normal breath sounds Cardiovascular: regular rate/rhythm Gastrointestinal: normal bowel sounds, soft Extremities: normal inspection Labs/Hipolito Results: Laboratory Tests 05/11 0611 Chemistry Sodium (137 - 145 mmol/L) 133 L Potassium (3.5 - 5.1 mmol/L) 4.1 Chloride (98 - 107 mmol/L) 99 Carbon Dioxide (22 - 30 mmol/L) 21 L Anion Gap (5 - 16) 13 BUN (9 - 20 mg/dL) 19 Creatinine (0.7 - 1.2 mg/dL) 0.8 Estimated GFR (>60 ml/min) > 60 BUN/Creatinine Ratio (7 - 25 %) 23.8 Hematology CBC w Diff Pending WBC Pending RBC Pending Hgb Pending Hct Pending MCV Pending MCH Pending RDW Pending Plt Count Pending MPV Pending PUBS MCHC Pending Toxicology Vancomycin Trough (10.0 - 20.0 ug/mL) 17.8 Assessment/Plan Assessment/Plan This 67-year-old male has a known history of uncontrolled diabetes type 2. He has been on insulin and metformin at home. The patient entered the hospital with cellulitis and osteomyelitis right foot. He has undergone surgical debridement of the right foot. The patient is presently on Levemir 17 units twice a day. When he is eating I would increase his sliding scale NovoLog. Sliding scale NovoLog before meals should be 80-150 give 4 units NovoLog, 151-200 give 5 units NovoLog, 201-250 give 6 units NovoLog, 251-300 give 8 units NovoLog, 301-350 give 10 units NovoLog, 351-400 give 12 units NovoLog. When he is eating a separate bedtime sliding scale NovoLog should be written. Sliding scale NovoLog at bedtime should be less than 250 give no insulin, 251- 300 give 3 units NovoLog, 301-350 give 4 units NovoLog, 351-400 give 5 units NovoLog.. The patient is to be made n.p.o. tonight for a surgical procedure tomorrow. I would reduce his Levemir tonight to 8 units of Levemir at bedtime. At midnight we should begin D5 half-normal at 75 cc/h. We should also place him at midnight on sliding scale NovoLog every 4 hours. Sliding scale NovoLog every 4 hours while n.p.o. should be less than 150 give no insulin, 151-200 give 3 units NovoLog, 201-250 give 4 units NovoLog, 251-300 give 5 units NovoLog, 301-350 give 6 units NovoLog, 351-400 give 7 units NovoLog. When he is eating again we should resume his normal insulin. Consult Acknowledgment - Thank you for your consult request.
[2017-05-11 09:21] LABS: PLATELET COUNT 105 /CUMM (130-400)
--- NOTE | 2017-05-11 12:55 | PN- Student ---
Yarely Hoffman 05/11/17 1254: Subjective Subjective: 67 yo M hospital day 6 for osteomyelitis and POD 4 from a partial second resection of R foot. PMHx of DM2, HTN, HLD, Hepatitis C, and esophageal varices. States he is feeling well this morning, pain level is 0/10. Denies presence of headache, dizziness, n/v, SOB, chest pain, abdominal pain or calf pain. Tolerating PO diet. Objective Objective: Vital Signs Date Time Temp Pulse Resp B/P B/P Pulse O2 O2 Flow FiO2 Mean Ox Delivery Rate 05/11 1011 85 132/64 05/11 1011 85 132/64 05/11 1010 85 132/64 05/11 1010 85 132/64 05/11 0630 98.4 87 20 134/74 97 05/10 2230 93 132/80 05/10 2140 98.5 93 19 132/80 95 Room Air 05/10 1515 98.1 93 20 130/70 98 Room Air Appearance: Alert and oriented, no acute distress Cardiovascular: Regular rate and rhythm, no murmurs, rubs, or gallops Pulmonary: Lungs clear to auscultation, no adventitious sounds present Abdomen: Protuberant abdomen, normoactive bowel sounds. Abdomen is soft to palpation, no TTP or rigidity present. Extremities: 2+ radial and tibialis posterior pulses. No erthyema, edema, or TTP of the calves bilaterally. R foot is wrapped in a clean, dry, and intact bandage. Intake & Output 05/11 1600 05/11 0800 05/11 0000 Intake Total 220 Output Total 675 925 Balance -455 -925 Intake, IV 20 Intake, Oral 200 Output, Urine 675 925 Current Medications Sig/Anh Start time Last Medication Dose Route Stop Time Status Admin Acetaminophen 650 MG Q6P PRN 05/06 1430 AC 05/08 PO 0148 Acetaminophen 1,000 MG Q6P PRN 05/06 1430 AC 05/09 IV 0033 Amlodipine Besylate 10 MG DAILY 05/07 1000 AC 05/11 PO 1011 Atorvastatin Calcium 10 MG 1700 05/07 1700 AC 05/10 PO 1715 Heparin Sodium 5,000 UNIT Q8 05/08 1442 AC 05/11 (Porcine) SC 0637 Hydrochlorothiazide 25 MG DAILY 05/07 1000 AC 05/11 PO 1010 Hydromorphone HCl 0.5 MG Q4P PRN 05/09 0800 AC 05/11 IV 1028 Insulin Aspart 0 TIDAC 05/06 1700 AC 05/11 SC 1222 Insulin Detemir 17 UNITS BID 05/07 0045 AC 05/11 SC 1010 Lisinopril 40 MG DAILY 05/07 1000 AC 05/11 PO 1011 Multivitamins 1 TAB DAILY 05/07 1000 AC 05/11 Therapeutic PO 1011 Nicotine 7 MG DAILY 05/08 1000 AC 05/11 TOP 1011 Polyethylene Glycol 17 GM DAILY PRN 05/11 0800 AC 05/11 PO 1010 Propranolol HCl 20 MG BID 05/06 2200 AC 05/11 PO 1010 Senna 187 MG AT BEDTIME PRN 05/11 08 AC PO Vancomycin HCl 1,500 MG Q12 05/07 2199 AC 05/11 Sodium Chloride 250 ML IV 1210 Verapamil HCl 180 MG DAILY 05/07 1000 AC 05/11 PO 1010 Results Results: Laboratory Tests 05/11/17 0611: Anion Gap 13, Estimated GFR > 60, BUN/Creatinine Ratio 23.8, CBC w Diff NO MAN DIFF REQ, RBC 3.50 L, MCV 94.6 H, MCH 32.4 H, RDW 13.3, MPV 8.8, Gran % 79.5 H, Lymphocytes % 8.8 L, Monocytes % 9.3, Eosinophils % 2.2, Basophils % 0.2, Absolute Granulocytes 2.9, Absolute Lymphocytes 0.3 L, Absolute Monocytes 0.3, Absolute Eosinophils 0.1, Absolute Basophils 0, PUBS MCHC 34.2, Vancomycin Trough 17.8 05/10/17 0602: CBC w Diff NO MAN DIFF REQ, RBC 3.56 L, MCV 94.3 H, MCH 32.8 H, RDW 13.3, MPV 8.9, Gran % 77.3 H, Lymphocytes % 11.0 L, Monocytes % 9.0, Eosinophils % 2.3, Basophils % 0.4, Absolute Granulocytes 2.9, Absolute Lymphocytes 0.4 L, Absolute Monocytes 0.3, Absolute Eosinophils 0.1, Absolute Basophils 0, PUBS MCHC 34.7 05/09/17 0650: Anion Gap 12, Estimated GFR > 60, BUN/Creatinine Ratio 22.5, CBC w Diff NO MAN DIFF REQ, RBC 3.41 L, MCV 94.9 H, MCH 33.2 H, RDW 13.3, MPV 8.7, Gran % 81.6 H, Lymphocytes % 7.6 L, Monocytes % 8.2, Eosinophils % 2.4, Basophils % 0.2, Absolute Granulocytes 3.7, Absolute Lymphocytes 0.3 L, Absolute Monocytes 0.4, Absolute Eosinophils 0.1, Absolute Basophils 0, PUBS MCHC 34.9 Culture 05/07/2017 GRAM STAIN Final 05/08/17-1332 WHITE BLOOD CELLS FROM THIO GRAM POSITIVE COCCI FROM THIO CLUSTERS > EXTREMITIES OR SPECIMEN Final 05/10/17-1104 AFTER OVERNIGHT INCUBATION IN THIO BROTH METH RESIST STAPH AUREUS ISOLATED Imaging Foot XR (05/06): subluxation of the PIP joint of the second toe with apparent fracture of the base of the middle phalanx. 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 Foot MRI (05/06): Ulceration at the dorsal margin of the second toe PIP joint with osteomyelitis of the proximal and middle phalanges. Vascular Doppler (05/06):Patent stented superficial femoral artery. Nonvisualization of the anterior tibial and peroneal arteries, question occluded. Abnormal monophasic waveforms in the posterior tibial and dorsalis pedis arteries. Assessment/Plan Assessment: 67 yo M hospital day 6 for osteomyelitis and POD 4 from a partial second resection of R foot Plan: 1. Osteomyelitis * Abx for MRSA: Vancomycin 1.5 g q12 IV * PICC line placement necessary before discharge * Wound closure scheduled for May 11 2. Manage chronic conditions * DM2: Novolin sliding scale and endocrine consult for elevated HgbA1c (8.0) and glucose levels * HLD: Atorvastatin * HTN: Verapamil, lisinopril, HCTZ, amlodipine, propranolol 3. DVT Prophylaxis: Compression stockings 4. Pain management: Dilaudid and Acetominophe 5. Full code
--- NOTE | 2017-05-11 14:51 | RADIOLOGY REPORT ---
EXAMINATION: XR PORTABLE CHEST CLINICAL INFORMATION: PICC line placement. COMPARISON: None TECHNIQUE: Portable AP 80 degrees upright view of the chest was obtained. FINDINGS: The left PICC line terminates in the low SVC. The heart is normal in size. Lungs are clear. IMPRESSION: Left PICC line in low SVC.
[2017-05-11 15:14] VITALS: BP 132/78
--- NOTE | 2017-05-11 18:14 | PN- Infect Dx ---
Subjective Subjective: Feeling well; s/p PICC placement L arm; no local tenderness. Review of Systems Comments: 12 points reviewed a noted, otherwise negative. Objective Last 24 Hrs of Vital Signs/I&O Vital Signs Date Time Temp Pulse Resp B/P B/P Pulse O2 O2 Flow FiO2 Mean Ox Delivery Rate 05/11 1514 98.5 87 20 132/78 98 Room Air 05/11 1310 Room Air Room Air 05/11 1305 Room Air Room Air 05/11 1011 85 132/64 05/11 1011 85 132/64 05/11 1010 85 132/64 05/11 1010 85 132/64 05/11 0630 98.4 87 20 134/74 97 05/10 2230 93 132/80 05/10 2140 98.5 93 19 132/80 95 Room Air Intake & Output 05/11 1600 05/11 0800 05/11 0000 Intake Total 220 Output Total 550 675 925 Balance -550 -455 -925 Intake, IV 20 Intake, Oral 200 Output, Urine 550 675 925 Physical Exam Other Physical Findings: Afebrile. He is awake and alert in no acute distress. Skin reveals no rash. HEENT negative. Neck is supple with no adenopathy. Lungs are clear. Heart regular rhythm with no murmur. Abdomen is soft, nontender with positive bowel sounds. Back no CVA tenderness. 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 Neuro neuropathy both feet. Results Last 24 Hours of Lab Results: Laboratory Tests 05/11 0611 Chemistry Sodium (137 - 145 mmol/L) 133 L Potassium (3.5 - 5.1 mmol/L) 4.1 Chloride (98 - 107 mmol/L) 99 Carbon Dioxide (22 - 30 mmol/L) 21 L Anion Gap (5 - 16) 13 BUN (9 - 20 mg/dL) 19 Creatinine (0.7 - 1.2 mg/dL) 0.8 Estimated GFR (>60 ml/min) > 60 BUN/Creatinine Ratio (7 - 25 %) 23.8 Hematology CBC w Diff NO MAN DIFF REQ WBC (4.8 - 10.8 /CUMM) 3.6 L RBC (4.70 - 6.10 /CUMM) 3.50 L Hgb (14.0 - 18.0 G/DL) 11.3 L Hct (42 - 52 %) 33.1 L MCV (80.0 - 94.0 FL) 94.6 H MCH (27.0 - 31.0 PG) 32.4 H RDW (11.5 - 14.5 %) 13.3 Plt Count (130 - 400 /CUMM) 105 L MPV (7.4 - 10.4 FL) 8.8 Gran % (42.2 - 75.2 %) 79.5 H Lymphocytes % (20.5 - 51.1 %) 8.8 L Monocytes % (1.7 - 9.3 %) 9.3 Eosinophils % (0 - 5 %) 2.2 Basophils % (0.0 - 2.0 %) 0.2 Absolute Granulocytes (1.4 - 6.5 /CUMM) 2.9 Absolute Lymphocytes (1.2 - 3.4 /CUMM) 0.3 L Absolute Monocytes (0.10 - 0.60 /CUMM) 0.3 Absolute Eosinophils (0.0 - 0.7 /CUMM) 0.1 Absolute Basophils (0.0 - 0.2 /CUMM) 0 PUBS MCHC (33.0 - 37.0 G/DL) 34.2 Toxicology Vancomycin Trough (10.0 - 20.0 ug/mL) 17.8 Last 24 Hours of [place] Results: Procedure Result > GRAM STAIN Final 05/08/17-1332 WHITE BLOOD CELLS FROM THIO GRAM POSITIVE COCCI FROM THIO CLUSTERS > EXTREMITIES OR SPECIMEN Final 05/10/17-1104 AFTER OVERNIGHT INCUBATION IN THIO BROTH METH RESIST STAPH AUREUS ISOLATED Called to/Readback by JUAN MANUEL by [email or web address] 05/10/17 1100 1. METH RESIST STAPH AUREUS RX ABN ------ --- 1. METH RESIST STAPH AUREUS RX AB ------ -- CEFAZOLIN R AMOXICILLIN/CLAVULINIC ACID R AMPICILLIN/SULBACTAM R TETRACYCLINE S TRIMETHOPRIM/SULFAMETHOXAZOLE S AZITHROMYCIN R CLINDAMYCIN S ERYTHROMYCIN R OXACILLIN R VANCOMYCIN S ATTENTIONATTENTIONPLACE PATIENT ON CONTACT PRECAUTIONS Recent Imaging Studies: CXR FINDINGS: The left PICC line terminates in the low SVC. The heart is normal in size. Lungs are clear. IMPRESSION: Left PICC line in low SVC. 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 of DM, HTN, PVD,HLD, esophogeal varicies, gastritits, hep C, BCC, melanoma admitted 05/06/17. Stable, status post open partial second ray resection of the right foot 3 days ago for osteomyelitis; OR culture positive for MRSA. He remains afebrile with white blood cell count normal on Vancomycin. He will require a prolonged course of antibiotics for residual osteomyelitis. Vancomycin level therapeutic today at 17.8. Mild leukopenia/thrombocytopenia (monitor CBC; question if side effect to vancomycin) Suggestion: 1. Follow up CBC in am. 3. Awaits return to the OR on May 12 4. PICC line care 5. Continue iv Vancomycin; next vancomycin trough 05/13 in am.
[2017-05-11 23:42] VITALS: BP 134/83
[2017-05-12 07:12] VITALS: BP 130/85
[2017-05-12 07:45] LABS: ABSOLUTE BASOPHIL COUNT 0 /CUMM (0.0-0.2); ABSOLUTE EOSINOPHIL COUNT 0.2 /CUMM (0.0-0.7); ABSOLUTE GRANULOCYTE CT 3.1 /CUMM (1.4-6.5); ABSOLUTE LYMPH COUNT 0.3 /CUMM (1.2-3.4); ABSOLUTE MONOCYTE COUNT 0.4 /CUMM (0.10-0.60); BASOPHIL % 0 % (0.0-2.0); EOSINOPHIL % 4.4 % (0-5); GRANULOCYTE % 77.3 % (42.2-75.2); HEMATOCRIT 32.9 % (42-52); MEAN CORPUSCULAR HGB CONC 34.5 G/DL (33.0-37.0); MEAN CORPUSCULAR VOLUME 95.5 FL (80.0-94.0); MEAN PLATELET VOLUME 8.7 FL (7.4-10.4); PLATELET COUNT 112 /CUMM (130-400); RBC DISTRIBUTION WIDTH 13.6 % (11.5-14.5); RED BLOOD CELL CT 3.44 /CUMM (4.70-6.10)
--- NOTE | 2017-05-12 08:01 | PN- Diabetes ---
Assessment/Plan Assessment: This 67-year-old male entered the hospital with an ulcer and cellulitis and presumed osteomyelitis of the foot. He underwent surgery. He is presently n.p.o. for further surgery on the foot today. The patient was placed on a reduced dose of Levemir and also NovoLog coverage every 4 hours. For some reason he did not receive any 4 am coverage but now has been covered at 6 AM. His blood sugar was high at 279. Plan: Suggest continue D5 half-normal saline at 75 cc/h and NovoLog coverage every 4 hours as written while the patient is n.p.o. Continue to monitor the patient's sugars carefully. When the patient is eating place him back on his usual mealtime insulin schedule. Subjective Subjective: Feels okay Review of Systems Constitutional: Denies: chills, fever. Cardiovascular: Denies: chest pain. Respiratory: Denies: cough, short of breath. Gastrointestinal: Denies: abdominal pain. Objective Last 24 Hrs of Vital Signs/I&O Vital Signs Date Time Temp Pulse Resp B/P B/P Pulse O2 O2 Flow FiO2 Mean Ox Delivery Rate 05/12 711 98.7 88 18 130/85 96 Room Air 05/11 2342 99.4 86 18 134/83 96 Room Air 05/117 86 134/83 05/11 1514 98.5 87 20 132/78 98 Room Air 05/11 1310 Room Air Room Air 05/11 1305 Room Air Room Air 05/11 1011 85 132/64 05/11 1011 85 132/64 05/11 1010 85 132/64 05/11 1010 85 132/64 Intake & Output 05/12 0800 05/12 0000 05/11 1600 Intake Total 510 880 Output Total 800 1350 Balance -290 -470 Intake, IV 270 280 Intake, Oral 240 600 Number 0 Bowel Movements Output, Urine 800 1350 Vital Signs Date Time Temp Pulse Resp B/P B/P Pulse O2 O2 Flow FiO2 Mean Ox Delivery Rate 05/12 0712 98.7 88 18 130/85 96 Room Air 05/11 2342 99.4 86 18 134/83 96 Room Air 05/11 2207 86 134/83 05/11 1514 98.5 87 20 132/78 98 Room Air 05/11 1310 Room Air Room Air 05/11 1305 Room Air Room Air 05/11 1011 85 132/64 01/15 1011 85 132/64 05/11 1010 85 132/64 05/11 1010 85 132/64 Intake & Output 05/12 0800 05/12 0000 05/11 1600 Intake Total 510 880 Output Total 800 1350 Balance -290 -470 Intake, IV 270 280 Intake, Oral 240 600 Number 0 Bowel Movements Output, Urine 800 1350 Physical Exam General Appearance: alert, awake Head: normal appearance Neck: normal inspection Respiratory: normal breath sounds Cardiovascular: regular rate/rhythm Abdomen: normal bowel sounds Current Medications: Current Medications Sig/Anh Start time Last Medication Dose Route Stop Time Status Admin Acetaminophen 650 MG Q6P PRN 05/06 1430 AC 05/08 PO 0148 Acetaminophen 1,000 MG Q6P PRN 05/06 1430 AC 05/09 IV 0033 Amlodipine Besylate 10 MG DAILY 05/07 1000 AC 05/11 PO 1011 Atorvastatin Calcium 10 MG 1700 05/07 1700 AC 05/11 PO 1745 Dextrose/Sodium 1,000 ML Q13H 05/12 0000 AC 05/12 Chloride IV 0033 Heparin Sodium 5,000 UNIT Q8 05/08 1442 DC 05/11 (Porcine) TX 05/12 0000 2204 Hydrochlorothiazide 25 MG DAILY 05/07 1000 AC 05/11 PO 1010 Hydromorphone HCl 0.5 MG Q4P PRN 05/09 0800 AC 05/12 IV 0410 Insulin Aspart 0 Q4 05/12 0000 AC 05/12 [place] 0621 Insulin Aspart 0 AT BEDTIME 05/11 2200 DC TX 05/11 2355 Insulin Aspart 0 TIDAC 05/06 1700 DC 05/11 TX 05/11 2355 1745 Insulin Detemir 8 UNITS BID 05/11 2200 AC 05/11 SC 2203 Insulin Detemir 17 UNITS BID 05/07 0045 VA 05/11 SC 1010 Lisinopril 40 MG DAILY 05/07 1000 AC 05/11 PO 1011 Multivitamins 1 TAB DAILY 05/07 1000 AC 05/11 Therapeutic PO 1011 Nicotine 7 MG DAILY 05/08 1000 AC 05/11 TOP 1011 Polyethylene Glycol 17 GM DAILY PRN 05/11 0800 AC 05/11 PO 1010 Propranolol HCl 20 MG BID 05/06 2200 AC 05/11 PO 2207 Senna 187 MG AT BEDTIME PRN 01/15 0800 AC 05/11 PO 2207 Vancomycin HCl 1,500 MG Q12 05/07 2200 AC 05/11 Sodium Chloride 250 ML IV 2159 Verapamil HCl 180 MG DAILY 05/07 1000 AC 05/11 PO 1010 Findings Pertinent Lab/[place] Results: Laboratory Tests 05/12 0618 Chemistry Sodium Pending Potassium Pending Chloride Pending Carbon Dioxide Pending Anion Gap Pending BUN Pending Creatinine Pending BUN/Creatinine Ratio Pending Hematology CBC w Diff NO MAN DIFF REQ WBC (4.8 - 10.8 /CUMM) 4.0 L RBC (4.70 - 6.10 /CUMM) 3.44 L Hgb (14.0 - 18.0 G/DL) 11.4 L Hct (42 - 52 %) 32.9 L MCV (80.0 - 94.0 FL) 95.5 H MCH (27.0 - 31.0 PG) 33.0 H RDW (11.5 - 14.5 %) 13.6 Plt Count (130 - 400 /CUMM) 112 L MPV (7.4 - 10.4 FL) 8.7 Gran % (42.2 - 75.2 %) 77.3 H Lymphocytes % (20.5 - 51.1 %) 8.6 L Monocytes % (1.7 - 9.3 %) 9.7 H Eosinophils % (0 - 5 %) 4.4 Basophils % (0.0 - 2.0 %) 0 Absolute Granulocytes (1.4 - 6.5 /CUMM) 3.1 Absolute Lymphocytes (1.2 - 3.4 /CUMM) 0.3 L Absolute Monocytes (0.10 - 0.60 /CUMM) 0.4 Absolute Eosinophils (0.0 - 0.7 /CUMM) 0.2 Absolute Basophils (0.0 - 0.2 /CUMM) 0 PUBS MCHC (33.0 - 37.0 G/DL) 34.5
--- NOTE | 2017-05-12 08:20 | PN- Student ---
Subjective Subjective: 67 yo M hospital day 7 for osteomyelitis of R foot and POD 5 from partial resection right foot. PMHx of DM2, HTN, HLD, GI varicies, HSV, BCC. PICC line placement completed last night with no complications. Currently NPO for reutrn to the OR for either wound closure or placemnet of wound vacuum. Denies any headaches, n/v, dizziness, blurry vision, chest pain, shortness of breath, leg and abdominal pain. Objective Objective: Vital Signs Result Date Time B/P 136/82 05/12 0809 Pulse Ox 96 05/12 07 O2 Delivery Room Air 05/12 07 Temp 98.7 05/12 07 Pulse 88 05/12 07 Resp 18 05/12 07 O2 Flow Rate Room Air 05/11 1310 Intake & Output 05/12 0000 05/11 1600 05/11 0800 Intake Total 510 880 220 Output Total 800 1350 675 Balance -290 -470 -455 Intake, IV 270 280 20 Intake, Oral 240 600 200 Number 0 Bowel Movements Output, Urine 800 1350 675 Appearance: Alert and oriented, cooperative and in NAD Cardiovasulcar: RRR, no murmurs, rubs, or gallops Pulmonary: Lungs clear to asucultation, no adventitious sound or accessory muscles of respiration in use Abdomen: Normoactive bowel sounds, soft to palpation, no TTP, no rigidity, no rebound tenderness Extremities: 2+ distal pulses in the tibialis posterior and <2 second capillary refill in fingers. Bilaterally, calves were not erythematous, edematous, or TTP. Clean, dry, and intact bandage applied to the right foot. Current Medications Sig/Anh Start time Last Medication Dose Route Stop Time Status Admin Acetaminophen 650 MG Q6P PRN 05/06 1430 AC 05/08 PO 0148 Acetaminophen 1,000 MG Q6P PRN 05/06 1430 AC 05/09 IV 0033 Amlodipine Besylate 10 MG DAILY 05/07 1000 AC 05/12 PO 0808 Atorvastatin Calcium 10 MG 1700 05/07 1700 AC 05/11 PO 1745 Dextrose/Sodium 1,000 ML Q13H 05/12 0000 AC 05/12 Chloride IV 0033 Heparin Sodium 5,000 UNIT Q8 05/08 1442 DC 05/11 (Porcine) SC 05/12 0000 2204 Hydrochlorothiazide 25 MG DAILY 05/07 1000 AC 05/12 PO 0809 Hydromorphone HCl 0.5 MG Q4P PRN 05/09 0800 AC 05/12 IV 0809 Insulin Aspart 0 Q4 05/12 0000 AC 05/12 SC 0621 Insulin Aspart 0 AT BEDTIME 05/11 2200 DC MT 05/11 2355 Insulin Aspart 0 TIDAC 05/06 1700 DC 05/11 MT 05/11 2355 1745 Insulin Detemir 8 UNITS BID 05/11 2200 AC 05/12 SC 0807 Insulin Detemir 17 UNITS BID 05/07 0045 DC 05/11 SC 1010 Lisinopril 40 MG DAILY 05/07 1000 AC 05/12 PO 0808 Multivitamins 1 TAB DAILY 05/07 1000 AC 05/12 Therapeutic PO 0808 Nicotine 7 MG DAILY 05/08 1000 AC 05/12 TOP 0807 Polyethylene Glycol 17 GM DAILY PRN 05/11 0800 AC 05/12 PO 0808 Propranolol HCl 20 MG BID 05/06 2200 AC 05/12 PO 0809 Senna 187 MG AT BEDTIME PRN 05/11 0800 AC 05/11 PO 2207 Vancomycin HCl 1,500 MG Q12 05/07 220 AC 05/11 Sodium Chloride 250 ML IV 2159 Verapamil HCl 180 MG DAILY 05/07 1000 AC 05/12 PO 0809 Results Results: Laboratory Tests 05/12/17 0618: Anion Gap 11, Estimated GFR > 60, BUN/Creatinine Ratio 23.3, CBC w Diff NO MAN DIFF REQ, RBC 3.44 L, MCV 95.5 H, MCH 33.0 H, RDW 13.6, MPV 8.7, Gran % 77.3 H, Lymphocytes % 8.6 L, Monocytes % 9.7 H, Eosinophils % 4.4, Basophils % 0, Absolute Granulocytes 3.1, Absolute Lymphocytes 0.3 L, Absolute Monocytes 0.4, Absolute Eosinophils 0.2, Absolute Basophils 0, PUBS MCHC 34.5 05/11/17 0611: Anion Gap 13, Estimated GFR > 60, BUN/Creatinine Ratio 23.8, CBC w Diff NO MAN DIFF REQ, RBC 3.50 L, MCV 94.6 H, MCH 32.4 H, RDW 13.3, MPV 8.8, Gran % 79.5 H, Lymphocytes % 8.8 L, Monocytes % 9.3, Eosinophils % 2.2, Basophils % 0.2, Absolute Granulocytes 2.9, Absolute Lymphocytes 0.3 L, Absolute Monocytes 0.3, Absolute Eosinophils 0.1, Absolute Basophils 0, PUBS MCHC 34.2, Vancomycin Trough 17.8 05/10/17 0602: CBC w Diff NO MAN DIFF REQ, RBC 3.56 L, MCV 94.3 H, MCH 32.8 H, RDW 13.3, MPV 8.9, Gran % 77.3 H, Lymphocytes % 11.0 L, Monocytes % 9.0, Eosinophils % 2.3, Basophils % 0.4, Absolute Granulocytes 2.9, Absolute Lymphocytes 0.4 L, Absolute Monocytes 0.3, Absolute Eosinophils 0.1, Absolute Basophils 0, PUBS MCHC 34.7 Assessment/Plan Assessment: 67 yo M hospital day 7 for osteomyelitis of R foot and POD 5 from partial resection right foot. Plan: 1. DVT prophylaxis * Heparin 5000 units subcutaneously q8hr * Compression stockings 2. Osteomyelitis * Abx for MRSA: Vancomycin * Return to the OR for further debridment and possible closure or placement of a wound vacuum * NPO for surgery 3. Manage chronic conditions * DM2: Novolin sliding scale and endocrine consult for elevated HgbA1c (8.0) and glucose levels * HLD: Atorvastatin * HTN: Verapamil, lisinopril, HCTZ, amlodipine, propranolol 4. Pain management * Morphine and Acetominophen 5. Full Code
--- NOTE | 2017-05-12 08:34 | PN- Housestaff ---
Himanshu LOPEZ,[facility] 05/12/17 0833: Subjective Follow-up For: osteomyelitis Subjective: No acute events overnight. States some constipation. Review of Systems Constitutional: Reports: no symptoms. Cardiovascular: Reports: no symptoms. Respiratory: Reports: no symptoms. Gastrointestinal: Reports: constipation. Genitourinary: Reports: no symptoms. Musculoskeletal: Reports: see HPI. Skin: Reports: see HPI. Objective Last 24 Hrs of Vital Signs/I&O Vital Signs Date Time Temp Pulse Resp B/P B/P Pulse O2 O2 Flow FiO2 Mean Ox Delivery Rate 05/12 2151 98.7 90 19 112/80 97 Room Air 05/12 2141 70 112/80 05/12 1515 97.5 77 18 122/82 98 Room Air 05/12 1150 97.5 76 20 128/82 100 Room Air 05/12 0809 136/82 05/12 0809 136/82 05/12 0808 136/82 05/12 0808 136/82 05/12 0712 98.7 88 18 130/85 96 Room Air 05/11 2342 99.4 86 18 134/83 96 Room Air Intake & Output 05/12 1600 05/12 0800 05/12 0000 Intake Total 600 510 Output Total 500 800 Balance 100 -290 Intake, IV 600 270 Intake, Oral 0 240 Number 0 0 Bowel Movements Output, Urine 500 800 Physical Exam General Appearance: Alert, Oriented X3, Cooperative Skin: R foot covered in dressing Cardiovascular: Regular Rate, Normal S1, Normal S2 Lungs: Clear to Auscultation, Normal Air Movement Abdomen: Normal Bowel Sounds, Soft, No Tenderness Extremities: 2+ radial pulses Current Medications: Current Medications Sig/Anh Start time Last Medication Dose Route Stop Time Status Admin Acetaminophen 650 MG Q6P PRN 05/06 1430 AC 05/08 PO 0148 Acetaminophen 1,000 MG Q6P PRN 05/06 1430 AC 05/12 IV 2140 Amlodipine Besylate 10 MG DAILY 05/07 1000 AC 05/12 PO 0808 Atorvastatin Calcium 10 MG 1700 05/07 1700 AC 05/12 PO 1629 Dextrose/Sodium 1,000 ML Q13H 05/12 0000 DC 05/12 Chloride IV 0033 Fentanyl Citrate 100 MCG .STK-MED ONE 05/12 0811 DC IM 05/12 0812 Heparin Sodium 5,000 UNIT Q8 05/12 2200 AC 05/12 (Porcine) SC 2139 Heparin Sodium 5,000 UNIT Q8 05/08 1442 DC 05/11 (Porcine) SC 05/12 0000 2204 Hydrochlorothiazide 25 MG DAILY 05/07 1000 AC 05/12 PO 0809 Hydromorphone HCl 0.5 MG Q4P PRN 05/09 0800 AC 05/12 IV 2026 Insulin Aspart 0 AT BEDTIME 05/12 2200 AC 05/12 [place] 2140 Insulin Aspart 0 TIDAC 05/12 1700 AC 05/12 SC 1629 Insulin Aspart 0 Q4 05/12 0000 DC 05/12 W[place] 1011 Insulin Aspart 0 AT BEDTIME 05/11 2200 DC W[place] 05/11 2355 Insulin Aspart 0 TIDAC 05/06 1700 DC 05/11 W[place] 05/11 2355 1745 Insulin Detemir 17 UNITS BID 05/12 2200 AC 05/12 SC 2139 Insulin Detemir 8 UNITS BID 05/11 2200 DC 05/12 SC 0807 Lisinopril 40 MG DAILY 05/07 1000 AC 05/12 PO 0808 Midazolam HCl 2 MG .STK-MED ONE 05/12 0812 DC IM 05/12 0813 Multivitamins 1 TAB DAILY 05/07 1000 AC 05/12 Therapeutic PO 0808 Nicotine 7 MG DAILY 05/08 1000 AC 05/12 TOP 0807 Polyethylene Glycol 17 GM DAILY PRN 05/11 0800 AC 05/12 PO 0808 Propranolol HCl 20 MG BID 05/06 2200 AC 05/12 PO 2141 Senna 187 MG AT BEDTIME PRN 05/11 0800 AC 05/11 PO 2207 Vancomycin HCl 1,500 MG Q12 05/07 220 AC 05/12 Sodium Chloride 250 ML IV 1011 Verapamil HCl 180 MG DAILY 05/07 1000 AC 05/12 PO 0809 Last 24 Hrs of Lab/[place] Results Last 24 Hrs of Labs/Mics: Laboratory Tests 05/12/17 1600: ESR Westergren 82 H 05/12/17 0618: Anion Gap 11, Estimated GFR > 60, BUN/Creatinine Ratio 23.3, CBC w Diff NO MAN DIFF REQ, RBC 3.44 L, MCV 95.5 H, MCH 33.0 H, RDW 13.6, MPV 8.7, Gran % 77.3 H, Lymphocytes % 8.6 L, Monocytes % 9.7 H, Eosinophils % 4.4, Basophils % 0, Absolute Granulocytes 3.1, Absolute Lymphocytes 0.3 L, Absolute Monocytes 0.4, Absolute Eosinophils 0.2, Absolute Basophils 0, PUBS MCHC 34.5 Assessment/Plan Assessment: A: 67 yo M with PMHx. 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 #chronic ulcer with possible osteomyelitis of 2nd R toe most likely due to diabetes s/p surgery WBC 7.0 -> 4.0 ALP 140 CRP 3.0 ESR 85 Foot XR: There is subluxation of the PIP joint of the second toe with apparent fracture of the base of the middle phalanx. There is subtle irregularity of the cortex of the proximal phalanx. An overlying soft tissue ulceration is noted. 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 Foot MRI: Ulceration at the dorsal margin of the second toe PIP joint with osteomyelitis of the proximal and middle phalanges. Vascular doppler:Patent stented superficial femoral artery. Nonvisualization of the anterior tibial and peroneal arteries, question occluded. Abnormal monophasic waveforms in the posterior tibial and dorsalis pedis arteries. Cx growing MRSA Vanc trough 17.8 -patient will go for wound closure today -obtain a postoperative baseline ESR and x-ray of the right foot -cont vanco -next vanc trough 05/13 in AM -received PICC line, plan for discharge care. Will need a weekly CBC, ESR, BUN/ creatinine and Vancomycin trough level #hyponatremia Na 133 -cont to monitor #diabetes hgba1c 8.0 Blood sugars running 300+ at times -novolin sliding scale with D5 1/2 NS -continue endocirnology recommendations #hld -atorvastatin #htn -verapamil, lisinopril, hctz, amlodipine, propanolol #dvt prophylaxis -ALPS in L leg #FULL CODE Problem List: 1. Foot osteomyelitis, right Pain Ratin Pain Location: R foot Pain Goal: Pain 4 or less Pain Plan: pain pathway Tomorrow's Labs & Rationales: cbc bep vanc trough Pam Rivera 05/12/17 1145: Attending MD Review Statement Attending Statement Attending MD Statement: examined this patient, discuss w/resident/PA/[employer]ENT, agreed w/resident/PA/[employer] SAL[employer] AGENT, discussed with family, reviewed EMR data (avail), discussed with nursing, discussed with case mgmt, reviewed images, amended to note Attending Assessment/Plan: A/P; 67 y/o M with pm sig for DM, HTN, PVD,HLD, esophogeal varicies, gastritits, hep C, BCC, melanoma, admitted with right foot second metatarsal osteomyelitis. Podiatry and infectius disease consulted. Status post debridement to Dr. Dawson. Plan for OR today. Continue IV vancomycin. follow-up on the bone cultures and infectious disease. Blood sugars acceptable on current regimen. heparin subcutaneous for DVT prophylaxis and continue current care..
[2017-05-12 11:50] VITALS: BP 128/82
--- NOTE | 2017-05-12 13:40 | PN- Infect Dx ---
Subjective Subjective: Afebrile without complaints Objective Last 24 Hrs of Vital Signs/I&O Vital Signs Date Time Temp Pulse Resp B/P B/P Pulse O2 O2 Flow FiO2 Mean Ox Delivery Rate 05/12 1150 97.5 76 20 128/82 100 Room Air 05/12 0809 136/82 05/12 0809 136/82 05/12 0808 136/82 05/12 0808 136/82 05/12 0712 98.7 88 18 130/85 96 Room Air 05/11 2342 99.4 86 18 134/83 96 Room Air 05/11 2207 86 134/83 05/11 1514 98.5 87 20 132/78 98 Room Air Intake & Output 05/12 1600 05/12 0800 05/12 0000 Intake Total 600 510 Output Total 500 800 Balance 100 -290 Intake, IV 600 270 Intake, Oral 0 240 Number 0 0 Bowel Movements Output, Urine 500 800 Physical Exam Other Physical Findings: He appears comfortable in no acute distress Extremities right foot dressing intact; PICC in the left upper extremity with no inflammation at the site Results Last 24 Hours of Lab Results: Laboratory Tests 05/12 0618 Chemistry Sodium (137 - 145 mmol/L) 133 L Potassium (3.5 - 5.1 mmol/L) 4.3 Chloride (98 - 107 mmol/L) 98 Carbon Dioxide (22 - 30 mmol/L) 24 Anion Gap (5 - 16) 11 BUN (9 - 20 mg/dL) 21 H Creatinine (0.7 - 1.2 mg/dL) 0.9 Estimated GFR (>60 ml/min) > 60 BUN/Creatinine Ratio (7 - 25 %) 23.3 Hematology CBC w Diff NO MAN DIFF REQ WBC (4.8 - 10.8 /CUMM) 4.0 L RBC (4.70 - 6.10 /CUMM) 3.44 L Hgb (14.0 - 18.0 G/DL) 11.4 L Hct (42 - 52 %) 32.9 L MCV (80.0 - 94.0 FL) 95.5 H MCH (27.0 - 31.0 PG) 33.0 H RDW (11.5 - 14.5 %) 13.6 Plt Count (130 - 400 /CUMM) 112 L MPV (7.4 - 10.4 FL) 8.7 Gran % (42.2 - 75.2 %) 77.3 H Lymphocytes % (20.5 - 51.1 %) 8.6 L Monocytes % (1.7 - 9.3 %) 9.7 H Eosinophils % (0 - 5 %) 4.4 Basophils % (0.0 - 2.0 %) 0 Absolute Granulocytes (1.4 - 6.5 /CUMM) 3.1 Absolute Lymphocytes (1.2 - 3.4 /CUMM) 0.3 L Absolute Monocytes (0.10 - 0.60 /CUMM) 0.4 Absolute Eosinophils (0.0 - 0.7 /CUMM) 0.2 Absolute Basophils (0.0 - 0.2 /CUMM) 0 PUBS MCHC (33.0 - 37.0 G/DL) 34.5 Last 24 Hours of [place] Results: No new cultures Recent Imaging Studies: Chest x-ray May 11 negative Assessment/Plan Impression: Stable, with temperatures and white blood cell count remaining normal, on Vancomycin for MRSA osteomyelitis, status post open partial second ray resection of the right foot 6 days ago, with plans for a return to the OR today for further debridement and presumed closure of the wound. His pancytopenia appears to be chronic and is likely related to his history of Hepatitis C. Suggestion: 1. Await return to the OR later today 2. Would obtain a postoperative baseline ESR and x-ray of the right foot 3. Continue Vancomycin to complete a four-week course of treatment from his most recent debridement (until June 09) 4. Will need a weekly CBC, ESR, BUN/creatinine and Vancomycin trough level
--- NOTE | 2017-05-12 13:43 | Operative Report ---
Operative/Inv Procedure Report Surgery Date: 05/12/17 Name of Procedure: 1 Open incision and drainage deep to the deep fascia with exposure of the extensor and flexor tendon and tendon sheath multiple sites right foot 2 delayed primary closure of open surgical wound with local random advancement flap 3 revisional partial second ray resection right foot 4 intraoperative administration of ankle block anesthesia 5 excisional debridement Pre-Operative Diagnosis: 1 open necrotic wound right foot 2 osteomyelitis right foot 3 diabetic peripheral neuropathy Post-Operative Diagnosis: The same Estimated Blood Loss: less than 50ml Surgeon/Lithographic Photographer Apprentice: MALA TOLLIVER DPM Anesthesia: moderate sedation, block Operative/Procedure Note Note: After obtaining informed consent the patient was brought to the operating room placed on the operating table supine position. The patient isn't securely fastened to the operating table utilizing safety belt. After administration of IV sedation, 10 mL of 0.5% Marcaine plain was infiltrated about the patient's right ankle. Right foot and ankle within scrubbed prepped and draped in usual aseptic manner. Attention directed right foot, where a large full-thickness chronic was identified. 50 blade visualized sharply revised skin margins. Dissection was then carried down deep to the deep fascia with exposure of the extensor and flexor tendon and tendon sheath multiple sites, both proximally and distally. All necrotic nonviable infected tissue sharply evacuated from the wound bed. The dissection was then carried down to the periosteum overlying the distal second metatarsal was incised reflected. A through and through osteotomies performed the distal osseous segment was freed and passed from the operative field was sent a specimen for pathologic inspection. Nipple was then irrigated with 3 L of normal sterile saline fissure 50,000 units of bacitracin. Following this, the foot was redraped and the surgeon's top was changed clean gloves. Any bleeding vessels identified were cauterized or ligated as encountered. Next, a dorsal lateral dorsal medial flap was developed with undermining, mobilization and advancement adjacent tissue centrally. The deep side of the flap was held with 3-0 Vicryl subtenons tissues reports a 4-0 Vicryl. The skin edges reprepped with 3-0 nylon and skin braulio. Incision dressed with Xeroform 4 x 4's Kerlix and an Zach wrap. The patient was noted tolerate both procedure and anesthesia well and the patient was transported from the operating room to recovery via signs stable best assess intact to both the dorsal medial dorsal lateral flaps.
[2017-05-12 15:15] VITALS: BP 122/82
--- NOTE | 2017-05-12 15:15 | RADIOLOGY REPORT ---
EXAMINATION: XR FOOT, RIGHT CLINICAL INFORMATION: Osteomyelitis. COMPARISON: 05/06/2017 TECHNIQUE: AP, lateral, and oblique views of the right foot. FINDINGS: Since the prior study, there has been amputation of the 2nd toe at the level of the 2nd metatarsal neck. Overlying soft tissues are swollen. Skin braulio are present at the surgical site. Prior amputation of the great toe at the level of the proximal metatarsal shaft is again noted. There is generalized soft tissue swelling in the forefoot. Minimal degenerative arthritis is present in the tarsometatarsal joints. No additional areas of osteomyelitis are identified. Moderate-sized enthesopathic spur is present at the plantar fascial origin on the calcaneus. IMPRESSION: Status post 2nd toe amputation at the level of the metatarsal neck. Surrounding soft tissue swelling. No complications identified.
[2017-05-12 21:51] VITALS: BP 112/80
[2017-05-13 04:15] LABS: ABSOLUTE BASOPHIL COUNT 0 /CUMM (0.0-0.2); ABSOLUTE EOSINOPHIL COUNT 0.2 /CUMM (0.0-0.7); ABSOLUTE GRANULOCYTE CT 2.9 /CUMM (1.4-6.5); ABSOLUTE LYMPH COUNT 0.4 /CUMM (1.2-3.4); ABSOLUTE MONOCYTE COUNT 0.5 /CUMM (0.10-0.60); BASOPHIL % 0.2 % (0.0-2.0); GRANULOCYTE % 71.8 % (42.2-75.2); HEMATOCRIT 31.7 % (42-52); MEAN CORPUSCULAR HGB 32.8 PG (27.0-31.0); MEAN CORPUSCULAR HGB CONC 34.5 G/DL (33.0-37.0); MEAN CORPUSCULAR VOLUME 95.1 FL (80.0-94.0); PLATELET COUNT 114 /CUMM (130-400); RBC DISTRIBUTION WIDTH 13.1 % (11.5-14.5); RED BLOOD CELL CT 3.34 /CUMM (4.70-6.10); WHITE BLOOD CELL COUNT 4.1 /CUMM (4.8-10.8)
[2017-05-13 05:51] VITALS: BP 138/82
--- NOTE | 2017-05-13 08:16 | PN- Diabetes ---
Assessment/Plan Assessment: This 67-year-old male entered the hospital with an ulcer and cellulitis and presumed osteomyelitis of the foot. He underwent surgery. The patient apparently had closure of his foot wound yesterday. He is in need of further antibiotic treatment and plans to go to rehab. He is back on his usual insulin regimen and is presently eating. Plan: Suggest continue the present insulin regimen. If the patient goes to rehab he should be discharged on Levemir 17 units twice a day and sliding scale NovoLog before meals with a separate sliding scale at bedtime as written. Subjective Subjective: Feels okay Review of Systems Constitutional: Denies: chills, fever. Cardiovascular: Denies: chest pain. Respiratory: Denies: cough, short of breath. Gastrointestinal: Denies: nausea, vomiting. Objective Last 24 Hrs of Vital Signs/I&O Vital Signs Date Time Temp Pulse Resp B/P B/P Pulse O2 O2 Flow FiO2 Mean Ox Delivery Rate 05/13 0551 98.2 84 20 138/82 100 Room Air Vital Signs Date Time Temp Pulse Resp B/P B/P Pulse O2 O2 Flow FiO2 Mean Ox Delivery Rate 05/13 0551 98.2 84 20 138/82 100 Room Air 05/12 2151 98.7 90 19 112/80 97 Room Air 05/12 2141 70 112/80 05/12 1515 97.5 77 18 122/82 98 Room Air 05/12 1150 97.5 76 20 128/82 100 Room Air Intake & Output 05/13 1600 05/13 0800 05/13 0000 Intake Total 510 Output Total 800 700 Balance -290 -700 Intake, IV 150 Intake, Oral 360 Output, Urine 800 700 Physical Exam General Appearance: alert, awake, comfortable Neck: normal inspection Respiratory: normal breath sounds Abdomen: normal bowel sounds Current Medications: Current Medications Sig/Anh Start time Last Medication Dose Route Stop Time Status Admin Acetaminophen 650 MG Q6P PRN 05/06 1430 AC 05/08 PO 0148 Acetaminophen 1,000 MG Q6P PRN 05/06 1430 AC 05/12 IV 2140 Amlodipine Besylate 10 MG DAILY 05/07 1000 AC 05/12 PO 0808 Atorvastatin Calcium 10 MG 1700 05/07 1700 AC 05/12 PO 1629 Bisacodyl 10 MG ONCE ONE 05/13 0745 DC MD 05/13 0746 Dextrose/Sodium 1,000 ML Q13H 05/12 0000 DC 05/12 Chloride IV 0033 Heparin Sodium 5,000 UNIT Q8 05/12 2200 AC 05/13 (Porcine) SC 0402 Hydrochlorothiazide 25 MG DAILY 05/07 1000 AC 05/12 PO 0809 Hydromorphone HCl 0.7 MG Q4P PRN 05/13 0800 AC IV Hydromorphone HCl 0.5 MG Q4P PRN 05/09 0800 DC 05/13 IV 0402 Insulin Aspart 0 AT BEDTIME 05/12 2200 AC 05/12 SC 2140 Insulin Aspart 0 TIDAC 05/12 1700 AC 05/12 SC 1629 Insulin Aspart 0 Q4 05/12 0000 DC 05/12 SC 1011 Insulin Detemir 17 UNITS BID 05/12 2200 AC 05/12 SC 2139 Insulin Detemir 8 UNITS BID 05/11 2200 DC 05/12 SC 0807 Lisinopril 40 MG DAILY 05/07 1000 AC 05/12 PO 0808 Multivitamins 1 TAB DAILY 05/07 1000 AC 05/12 Therapeutic PO 0808 Nicotine 7 MG DAILY 05/08 1000 AC 05/12 TOP 0807 Polyethylene Glycol 17 GM DAILY PRN 05/11 0800 AC 05/12 PO 0808 Propranolol HCl 20 MG BID 05/06 2200 AC 05/12 PO 2141 Senna 187 MG AT BEDTIME PRN 05/11 0800 AC 05/11 PO 2207 Vancomycin HCl 1,500 MG Q12 05/07 2200 AC 05/12 Sodium Chloride 250 ML IV 2241 Verapamil HCl 180 MG DAILY 05/07 1000 AC 05/12 PO 0809 Findings Pertinent Lab/Hipolito Results: Laboratory Tests 05/13 05/12 0400 1600 Chemistry Sodium (137 - 145 mmol/L) 134 L Potassium (3.5 - 5.1 mmol/L) 4.3 Chloride (98 - 107 mmol/L) 101 Carbon Dioxide (22 - 30 mmol/L) 23 Anion Gap (5 - 16) 10 BUN (9 - 20 mg/dL) 19 Creatinine (0.7 - 1.2 mg/dL) 0.8 Estimated GFR (>60 ml/min) > 60 BUN/Creatinine Ratio (7 - 25 %) 23.8 Hematology CBC w Diff NO MAN DIFF REQ WBC (4.8 - 10.8 /CUMM) 4.1 L RBC (4.70 - 6.10 /CUMM) 3.34 L Hgb (14.0 - 18.0 G/DL) 11.0 L Hct (42 - 52 %) 31.7 L MCV (80.0 - 94.0 FL) 95.1 H MCH (27.0 - 31.0 PG) 32.8 H RDW (11.5 - 14.5 %) 13.1 Plt Count (130 - 400 /CUMM) 114 L MPV (7.4 - 10.4 FL) 8.0 Gran % (42.2 - 75.2 %) 71.8 Lymphocytes % (20.5 - 51.1 %) 10.7 L Monocytes % (1.7 - 9.3 %) 12.3 H Eosinophils % (0 - 5 %) 5.0 Basophils % (0.0 - 2.0 %) 0.2 Absolute Granulocytes (1.4 - 6.5 /CUMM) 2.9 Absolute Lymphocytes (1.2 - 3.4 /CUMM) 0.4 L Absolute Monocytes (0.10 - 0.60 /CUMM) 0.5 Absolute Eosinophils (0.0 - 0.7 /CUMM) 0.2 Absolute Basophils (0.0 - 0.2 /CUMM) 0 PUBS MCHC (33.0 - 37.0 G/DL) 34.5 ESR Westergren (0 - 10 MM) 82 H Toxicology Vancomycin Trough (10.0 - 20.0 ug/mL) 19.0
--- NOTE | 2017-05-13 12:22 | Discharge Summary ---
See Addendum Visit Information Visit Dates Admission Date: 05/06/17 Discharge Date: 05/13/17 Hospital Course Course Attending Physician: Pam Rivera MD Primary Care Physician: Nora Melendez MD Consulting Request: 1 Consulting Specialty: Endocrinology Consulting Physician: Dr. Coats Reason for Consult: Diabetes Consulting Request: 2 Consulting Specialty: Infectious Disease Consulting Physician: Reason for Consult: Osteomyelitis Hospital Course: is a 67 yo man with PMHx. of DM, HTN, PVD presented to ED from his podaitry office Dr. Dawson for chronic ulcer of the right foot, patient has a hx. of right foot ulcer s/p ambutation of the right great toe. Intial vitals were stable with ulcer on physical exam. Labs are consistent with high glucose, ALP 140, CRP 3, ESR 85. Imaging significant for Foot Xray IMPRESSION: There is subluxation of the PIP joint of the second toe with apparent fracture of the base of the middle phalanx. There is subtle irregularity of the cortex of the proximal phalanx. An overlying soft tissue ulceration is noted. 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 Recommend correlation with MRI. Status post great toe amputation with unremarkable appearance of the amputation site. MRI foot IMPRESSION: Ulceration at the dorsal margin of the second toe PIP joint with osteomyelitis of the proximal and middle phalanges. vascualr ultrasound IMPRESSION: Patent stented superficial femoral artery. Nonvisualization of the anterior tibial and peroneal arteries, question occluded. Abnormal monophasic waveforms in the posterior tibial and dorsalis pedis arteries. Problem list: 1. Chronic ulcer of the right foot -- MRSA osteomyelitis and cellulitis 3. Hx. of DM 4. Hx. of HTN Admitted to general medicine floor Right foot MRSA osteomyelitis and cellulitis Patient underwent debridement twice on may 07 with partial ray resection of 2nd toe and closure on may 12 during this hospitalization. Started on unasyn and then transitione to vanco once cultures grew Vanco. Infectious disease on board and requested to continue vanco for a total of 4 weeks till june 09 2017. Vanco trough level during this hospitalization is within therapeutic range - today is17. A PICC line was inserted for antibiotics. Continue vancomycin 1500mg(1.5gm) Q12 till jun 09. Baseline ESR is 82 and foot Xray did show postoperative changes after second debridement. He needs follow up of weekly ESR, BUN/CR, CBC and vanco trough level during the course. Vascular surgery was consulted with concerns PAD. As there is no clinically significant lesion deferred any further management. CMR written as 1gm vanco due to prescription issues. he is on vanco 1.5gm BID. Diabetes HbA1C of 8.0, follows . Blood sugars running 300+ at times. Endocrinology consulted and started on current regimen as per their recommendation. Levemir 10units BID. Please see CMR for full details Hyponatremia Na level of 133, probably secondary to mild hyperglycemia. Please monitor. No changes in mental status. HTN Continue -verapamil, lisinopril, hctz, amlodipine, propanolol HLD Continue atorvastatin full code Complications: none Allergies: Coded Allergies: No Known Allergies (12/17/15) Significant Procedures: US DUPLEX LOWER EXTREMITY ARTERY/GRAFT LIMITED, RIGHT CLINICAL INFORMATION: Chronic ulcer right foot, redness, weak pulse. Rule out peripheral arterial disease. COMPARISON: 01/16/2016 TECHNIQUE: Real-time ultrasound and Doppler techniques (integrating B-mode 2-D vascular images, Doppler spectral analysis and color flow Doppler imaging) were utilized to interrogate the right lower extremity arteries. FINDINGS: Since the prior study, angioplasty/stenting of the superficial femoral artery has been performed. Moderate atherosclerotic plaque at the common femoral artery. Triphasic waveform. Velocity 143/8 cm/s. Mild atherosclerotic plaque in the profunda femoral artery. Triphasic waveform. Velocity 60/6 cm/s. Patent stented proximal superficial femoral artery. Triphasic waveform. Velocity 71/10 cm/s. Patent stented mid superficial femoral artery. Triphasic waveform. Velocity 60/3 cm/s. Patent stented distal superficial femoral artery. Triphasic waveform. Velocity 88/16 cm/s. Mild atherosclerotic plaque in the popliteal artery. Triphasic waveform. Velocity 82/18 cm/s. Anterior tibial artery is not visualized. The peroneal artery is not visualized. Limited visualization of the posterior tibial artery. Suspect monophasic waveform. Velocity 63/12 cm/s. Monophasic waveform of the dorsalis pedis. Velocity 54/12 cm/s. IMPRESSION: Patent stented superficial femoral artery. Nonvisualization of the anterior tibial and peroneal arteries, question occluded. Abnormal monophasic waveforms in the posterior tibial and dorsalis pedis arteries. foot Xray on 1/10/18 IMPRESSION: There is subluxation of the PIP joint of the second toe with apparent fracture of the base of the middle phalanx. There is subtle irregularity of the cortex of the proximal phalanx. An overlying soft tissue ulceration is noted. 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 Recommend correlation with MRI. Status post great toe amputation with unremarkable appearance of the amputation site. foot MRI IMPRESSION: Ulceration at the dorsal margin of the second toe PIP joint with osteomyelitis of the proximal and middle phalanges. CXR on 05/11/17 s/p PICC IMPRESSION: Left PICC line in low SVC. foot Xray on 05/12/17 IMPRESSION: Status post 2nd toe amputation at the level of the metatarsal neck. Surrounding soft tissue swelling. No complications identified. Pertinent Lab Results: as above Disposition Summary Disposition Principal Diagnosis: Right foot MRSA osteomyelitis Additional Diagnosis: HTN DM PAD mild hyponatremia Discharge Disposition: short term rehab Discharge Instructions General Discharge Information Code Status: Full Code Patient's Diet: Diabetic diet Patient's Activity: as tolerated Follow-Up Instructions/Appts: Please follow up wt PCP in a week Please follow up with in a week Please make sure weekly CBC, ESR, BUN/Cr and vanco trough levels are done during course of antibitotic therapy Please follow up with Dr. Jorge L breaux diabetes management as outpatine in 1-2 weeks Medications at Discharge Discharge Medications: Stop taking the following medications: Insulin Glargine,Hum.rec.anlog (Toujeo Solostar) 300 UNIT/1 ML INSULN.PEN Inject into fatty tissue Every Morning Qty = 6 Insulin Aspart, Recombinant (Novolog Flexpen) 100 UNIT/1 ML INSULN.PEN Inject into fatty tissue 3 TIMES DAILY BEFORE MEALS Qty = 15 Metformin HCl (Metformin HCl) 850 MG TABLET ORAL TWICE DAILY Qty = 60 Continue taking these medications: Amlodipine Besylate (Amlodipine Besylate) 10 MG TABLET 1 Tablet ORAL DAILY Qty = 30 Comments: Last Taken: 01/23/16 Time: 10:00 AM Verapamil HCl (Verapamil ER) 180 MG TABLET.ER 1 Tablet ORAL DAILY Qty = 90 Comments: Last Taken: 01/23/16 Time: 10:00 AM Hydrochlorothiazide (Hydrochlorothiazide) 25 MG TABLET 1 Tablet ORAL DAILY Qty = 90 Comments: NOT GIVEN WHILE IN HOSPITAL Propranolol HCl (Propranolol HCl) 20 MG TABLET 1 Tablet ORAL TWICE DAILY Qty = 60 Comments: Last Taken: 01/23/16 Time: 10:00 AM Simvastatin (Simvastatin*) 10 MG TABLET 1 Tablet ORAL Every night Qty = 30 Comments: Last Taken: 01/22/16 Time: 6:00 PM Lisinopril (Lisinopril) 40 MG TABLET 1 Tablet ORAL DAILY Qty = 90 Comments: Last Taken: 01/23/16 Time: 10:00 AM Aspirin (Ecotrin*) 81 MG TABLET.DR 1 Tablet ORAL DAILY Comments: Last Taken: 01/23/16 Time: 10:00 AM Multivitamin (Daily Value) 1 EACH TABLET 1 Tablet ORAL DAILY Start taking the following new medications: Polyethylene Glycol 3350 (Miralax) 17 GRAM/DOSE POWDER 17 Gram ORAL DAILY as needed for CONSTIPATION Qty = 1 No Refills Sennosides/Docusate Sodium (Senna-Time S Tablet) 8.6 MG-50 MG TABLET 187 Milligram ORAL AT BEDTIME as needed for CONSTIPATION Qty = 1 No Refills Insulin Detemir (Levemir) 100 UNIT/ML VIAL 17 Units Inject into fatty tissue TWICE DAILY Qty = 10 No Refills Insulin Aspart (Novolog) 100 UNIT/ML VIAL 0 Units Inject into fatty tissue 3 TIMES DAILY BEFORE MEALS Qty = 10 No Refills Instructions: BLOOD SUGAR UNITS <80 0 80-150 4 151-200 5 201-250 6 251-300 8 301-350 10 351-400 12 >400 12 UNITS CALL Insulin Aspart (Novolog) 100 UNIT/ML VIAL 0 Units Inject into fatty tissue AT BEDTIME Qty = 10 No Refills Instructions: BED TIME SLIDING SCALE BLOOD SUGAR INSULIN UNITS <250 0 251-300 3 301-350 4 351-400 5 >400 5 UNITS CALL Vancomycin/0.9 % Sod Chloride (Vancomycin 1 G/100ML-0.9% NaCl) 1 GRAM/100 ML PLAST..BAG 1,500 Milligram INTRAVEN EVERY 12 HOURS Qty = 54 No Refills Instructions: PLEASE CONTINUE VANCOMYCIN 1500MG IV Q12 HOURS FOR THE NEXT 27 DAYS Oxycodone HCl (Oxycontin) 15 MG TAB.ER.12H 1 Tablet ORAL TWICE DAILY Qty = 20 No Refills Copies To: Nora LOPEZ,Nora; Eunice GAINES,Michael; Ez LOPEZ,John Attending MD Review Statement Documenting Attending: Miguel LOPEZ,Pam
--- NOTE | 2017-05-13 12:30 | PN- Housestaff ---
Himanshu LOPEZ,[facility] 05/13/17 1229: Subjective Follow-up For: osteomelitis Subjective: No acute events overnight. Still having constipation. 8/ foot pain. Review of Systems Constitutional: Reports: no symptoms. Cardiovascular: Reports: no symptoms. Respiratory: Reports: no symptoms. Gastrointestinal: Reports: constipation. Genitourinary: Reports: no symptoms. Musculoskeletal: Reports: see HPI, joint pain. Skin: Reports: see HPI. Objective Last 24 Hrs of Vital Signs/I&O Vital Signs Date Time Temp Pulse Resp B/P B/P Pulse O2 O2 Flow FiO2 Mean Ox Delivery Rate 05/13 1110 92 160/92 05/13 0551 98.2 84 20 138/82 100 Room Air 05/12 2151 98.7 90 19 112/80 97 Room Air 05/12 2141 70 112/80 05/12 1515 97.5 77 18 122/82 98 Room Air Intake & Output 05/13 1600 05/13 0800 05/13 0000 Intake Total 510 Output Total 800 700 Balance -290 -700 Intake, IV 150 Intake, Oral 360 Output, Urine 800 700 Physical Exam General Appearance: Alert, Oriented X3, Cooperative, Mild Distress Cardiovascular: Regular Rate, Normal S1, Normal S2, No Murmurs Lungs: Clear to Auscultation, Normal Air Movement Abdomen: Normal Bowel Sounds, Soft, No Tenderness Extremities: R foot covered in dressing Vascular: 2+ radial pulse Current Medications: Current Medications Sig/Anh Start time Last Medication Dose Route Stop Time Status Admin Acetaminophen 650 MG Q6P PRN 05/06 1430 AC 05/08 PO 0148 Acetaminophen 1,000 MG Q6P PRN 05/06 1430 AC 05/12 IV 2140 Amlodipine Besylate 10 MG DAILY 05/07 1000 AC 05/13 PO 1110 Atorvastatin Calcium 10 MG 1700 05/07 1700 AC 05/12 PO 1629 Bisacodyl 10 MG ONCE ONE 05/13 0745 DC [place] 05/13 0746 Heparin Sodium 5,000 UNIT Q8 05/12 2200 AC 05/13 (Porcine) SC 1312 Hydrochlorothiazide 25 MG DAILY 05/07 1000 AC 05/13 PO 1110 Hydromorphone HCl 0.7 MG Q4P PRN 05/13 0800 AC 05/13 IV 1101 Hydromorphone HCl 0.5 MG Q4P PRN 05/09 0800 DC 05/13 IV 0402 Insulin Aspart 0 AT BEDTIME 05/12 2200 AC 05/12 SC 2140 Insulin Aspart 0 TIDAC 05/12 1700 AC 05/13 SC 1312 Insulin Detemir 17 UNITS BID 05/12 2200 AC 05/13 SC 1056 Lisinopril 40 MG DAILY 05/07 1000 AC 05/13 PO 1110 Multivitamins 1 TAB DAILY 05/07 1000 AC 05/13 Therapeutic PO 1110 Nicotine 7 MG DAILY 05/08 1000 AC 05/13 TOP 1141 Polyethylene Glycol 17 GM DAILY PRN 05/11 0800 AC 05/12 PO 0808 Propranolol HCl 20 MG BID 05/06 2200 AC 05/13 PO 1111 Senna 187 MG AT BEDTIME PRN 05/11 0800 AC 05/11 PO 2207 Vancomycin HCl 1,500 MG Q12 05/07 220 AC 05/13 Sodium Chloride 250 ML IV 1145 Verapamil HCl 180 MG DAILY 05/07 1000 AC 05/13 PO 1111 Last 24 Hrs of Lab/Hipolito Results Last 24 Hrs of Labs/Mics: Laboratory Tests 05/13/17 0400: Anion Gap 10, Estimated GFR > 60, BUN/Creatinine Ratio 23.8, CBC w Diff NO MAN DIFF REQ, RBC 3.34 L, MCV 95.1 H, MCH 32.8 H, RDW 13.1, MPV 8.0, Gran % 71.8, Lymphocytes % 10.7 L, Monocytes % 12.3 H, Eosinophils % 5.0, Basophils % 0.2, Absolute Granulocytes 2.9, Absolute Lymphocytes 0.4 L, Absolute Monocytes 0.5, Absolute Eosinophils 0.2, Absolute Basophils 0, PUBS MCHC 34.5, Vancomycin Trough 19.0 05/12/17 1600: ESR Westergren 82 H Assessment/Plan Assessment: A: 67 yo M with PMHx. 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 #chronic ulcer with possible osteomyelitis of 2nd R toe most likely due to diabetes s/p surgery WBC 7.0 -> 4.1 ALP 140 CRP 3.0 ESR 85 Foot XR: There is subluxation of the PIP joint of the second toe with apparent fracture of the base of the middle phalanx. There is subtle irregularity of the cortex of the proximal phalanx. An overlying soft tissue ulceration is noted. 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 Foot MRI: Ulceration at the dorsal margin of the second toe PIP joint with osteomyelitis of the proximal and middle phalanges. Vascular doppler:Patent stented superficial femoral artery. Nonvisualization of the anterior tibial and peroneal arteries, question occluded. Abnormal monophasic waveforms in the posterior tibial and dorsalis pedis arteries. Cx growing MRSA Vanc trough 17.8, 19.0 - troughs not accurate as levels were not drawn 30 minutes before last dose Post op esr: 82 Post op foot xr: Status post 2nd toe amputation at the level of the metatarsal neck. Surrounding soft tissue swelling. No complications identified. -Continue Vancomycin to complete a 4 week course of treatment from yesterday ( until June 09) -received PICC line, plan for discharge care. Will need a weekly CBC, ESR, BUN/ creatinine and Vancomycin trough level #hyponatremia Na 134 -cont to monitor #diabetes hgba1c 8.0 Blood sugars running 300+ at times -discharge with levemir 17 units BID, novolog sliding scale, and night time scale #hld -atorvastatin #htn -verapamil, lisinopril, hctz, amlodipine, propanolol #dvt prophylaxis -ALPS in L leg #FULL CODE Problem List: 1. Foot osteomyelitis, right Pain Ratin Pain Location: R foot Pain Goal: Pain 4 or less Pain Plan: pain pathway Tomorrow's Labs & Rationales: none Consulting Request: Consulting Specialty: Infectious Disease Consulting Physician: Reason for Consult: Osteomyelitis Pam Rivera 05/13/17 1240: Attending MD Review Statement Attending Statement Attending MD Statement: examined this patient, discuss w/resident/PA/STEAM CRANE OPERATOR, agreed w/resident/PA/STEAM CRANE OPERATOR, discussed with family, reviewed EMR data (avail), discussed with nursing, discussed with case mgmt, reviewed images, amended to note Attending Assessment/Plan: A/P; 67 y/o M with pmh sig for DM, HTN, PVD,HLD, esophogeal varicies, gastritits, hep C, BCC, melanoma, admitted with right foot second metatarsal osteomyelitis. Podiatry and infectius disease consulted. Status post debridement by Dr. Dawson. Continue IV Abx as per ID. follow-up on the bone cultures and infectious disease. Blood sugars acceptable on current regimen. heparin subcutaneous for DVT prophylaxis and continue current care.. Patient is medically stable for discharge. Post op xray and ESR as per ID f/u. FOLLOW UP PCP in 3-5 days of discharge. Podiatry in 1-2 weeks of discharge.
[2017-05-13] MEDS ORDERED: MIRALAX119 GM PO (12:39)
[2017-05-13] MEDS ORDERED: NOVOLOG100 UNIT/2 SC ×2 (12:39)
[2017-05-13] MEDS ORDERED: LEVEMIR100 UNIT/1 SC (12:39)
[2017-05-13] MEDS ORDERED: SENNA-TIME S T1 EACH PO (12:39)
[2017-05-13] MEDS ORDERED: VANCOMYCIN1 GM/1001 IV ×2 (12:43→14:15)
[2017-05-13] MEDS ORDERED: OXYCONTIN15 M1 PO (12:51)
--- NOTE | 2017-05-13 12:55 | Patient Discharge Instructions ---
Discharge Instructions General Discharge Information Special Instructions: Please follow up with your pcp in 1-2 weeks. 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 Please take your medications as perscribed. Please get a weekly CBC, ESR, BUN/creatinine and Vancomycin trough level Acute Coronary Syndrome Inclusion Criteria At DC or during hospital stay patient has or had the following: ACS DIAGNOSIS No Discharge Core Measures Meds if any: Prescribed or Continued at Discharge Meds if any: NOT Prescribed or Continued at Discharge Congestive Heart Failure Inclusion Criteria At DC or during hospital stay patient has or had the following: CHF DIAGNOSIS No Discharge Core Measures Meds if any: Prescribed or Continued at Discharge Meds if any: NOT Prescribed or Continued at Discharge Cerebrovascular accident Inclusion Criteria At DC or during hospital stay patient has or had the following: CVA/TIA Diagnosis No Discharge Core Measures Meds if any: Prescribed or Continued at Discharge Meds if any: NOT Prescribed or Continued at Discharge Venous thromboembolism Inclusion Criteria VTE Diagnosis No VTE Type NONE VTE Confirmed by (Test) NONE Discharge Core Measures - Per Current guidelines, there needs to be overlap - treatment for the first 5 days of Warfarin therapy. - If discharged on Warfarin prior to 5 days of - overlap therapy, the patient will need to be - assessed for post discharge needs including - *Post discharge parental anticoagulation - *Warfarin and/or parental anticoagulation education - *Follow up date to check INR post discharge At least 5 days overlap therapy as Inpatient No Meds if any: Prescribed or Continued at Discharge Note: Overlap Therapy is Warfarin and Anticoagulant Meds if any: NOT Prescribed or Continued at Discharge
--- NOTE | 2017-05-13 13:47 | PN- Infect Dx ---
Subjective Subjective: Afebrile. He notes minimal discomfort in the right foot. Objective Last 24 Hrs of Vital Signs/I&O Vital Signs Date Time Temp Pulse Resp B/P B/P Pulse O2 O2 Flow FiO2 Mean Ox Delivery Rate 05/13 1110 92 160/92 05/13 0551 98.2 84 20 138/82 100 Room Air 05/12 2151 98.7 90 19 112/80 97 Room Air 05/12 2141 70 112/80 05/12 1515 97.5 77 18 122/82 98 Room Air Intake & Output 05/13 1600 05/13 0800 05/13 0000 Intake Total 510 Output Total 800 700 Balance -290 -700 Intake, IV 150 Intake, Oral 360 Output, Urine 800 700 Physical Exam Other Physical Findings: He appears comfortable in no acute distress Extremities right foot dressing intact; PICC in the left upper exam with no inflammation at the site Results Last 24 Hours of Lab Results: Laboratory Tests 05/13 05/12 0400 1600 Chemistry Sodium (137 - 145 mmol/L) 134 L Potassium (3.5 - 5.1 mmol/L) 4.3 Chloride (98 - 107 mmol/L) 101 Carbon Dioxide (22 - 30 mmol/L) 23 Anion Gap (5 - 16) 10 BUN (9 - 20 mg/dL) 19 Creatinine (0.7 - 1.2 mg/dL) 0.8 Estimated GFR (>60 ml/min) > 60 BUN/Creatinine Ratio (7 - 25 %) 23.8 Hematology CBC w Diff NO MAN DIFF REQ WBC (4.8 - 10.8 /CUMM) 4.1 L RBC (4.70 - 6.10 /CUMM) 3.34 L Hgb (14.0 - 18.0 G/DL) 11.0 L Hct (42 - 52 %) 31.7 L MCV (80.0 - 94.0 FL) 95.1 H MCH (27.0 - 31.0 PG) 32.8 H RDW (11.5 - 14.5 %) 13.1 Plt Count (130 - 400 /CUMM) 114 L MPV (7.4 - 10.4 FL) 8.0 Gran % (42.2 - 75.2 %) 71.8 Lymphocytes % (20.5 - 51.1 %) 10.7 L Monocytes % (1.7 - 9.3 %) 12.3 H Eosinophils % (0 - 5 %) 5.0 Basophils % (0.0 - 2.0 %) 0.2 Absolute Granulocytes (1.4 - 6.5 /CUMM) 2.9 Absolute Lymphocytes (1.2 - 3.4 /CUMM) 0.4 L Absolute Monocytes (0.10 - 0.60 /CUMM) 0.5 Absolute Eosinophils (0.0 - 0.7 /CUMM) 0.2 Absolute Basophils (0.0 - 0.2 /CUMM) 0 PUBS MCHC (33.0 - 37.0 G/DL) 34.5 ESR Westergren (0 - 10 MM) 82 H Toxicology Vancomycin Trough (10.0 - 20.0 ug/mL) 19.0 Last 24 Hours of [place] Results: No new cultures Assessment/Plan Impression: Stable, with temperatures and white blood cell count remaining normal, on Vancomycin for MRSA osteomyelitis, status post delayed primary closure of his right foot wound yesterday, now 1 week status post second ray resection of the right foot. His Vancomycin level from this morning represents a random level, not a trough level, and is, therefore, of unclear significance. Suggestion: 1. Continue Vancomycin to complete a 4 week course of treatment from yesterday (until June 09) 2. Will need a weekly CBC, ESR, BUN/creatinine and Vancomycin trough level while on Vancomycin
[2017-05-13 15:53] VITALS: BP 160/92
== END 2017-05-13 16:04 | DRG 464 ==
LOC: ERH 11:16 → 2NB 13:51 → ERHI 13:51 → ENRESERV 19:24 → ENTRNSPT 19:58 → 2NB 20:12 → CMPTRNSPT 20:44 → ENTRNSPT 05-07 20:11 → CMPTRNSPT 05-07 20:24 → 2NB 05-08 09:57 → ENTRNSPT 05-12 14:15 → CMPTRNSPT 05-12 15:04 → 2NB 05-13 16:04
PROVIDERS: Emergency Medicine; Internal Medicine Hematology & Oncology; Student in an Organized Health Care Education/Training Program
PROC: 0Y6M0ZB Detachment at Right Foot, Partial 2nd Ray, Open Approach (ICD-10-PCS; principal; 2017-05-07)
PROC: 02HV33Z Insertion of Infusion Device into Superior Vena Cava, Percutaneous Approach (ICD-10-PCS; 2017-05-11)
PROC: 0HXMXZZ Transfer Right Foot Skin, External Approach (ICD-10-PCS; 2017-05-12)
PROC: 0QBN0ZZ Excision of Right Metatarsal, Open Approach (ICD-10-PCS; 2017-05-12)
DX: M86.8X7 Other osteomyelitis, ankle and foot (principal); M84.477A Pathological fracture, right toe(s), initial encounter for fracture; E11.621 Type 2 diabetes mellitus with foot ulcer; E11.51 Type 2 diabetes mellitus with diabetic peripheral angiopathy without gangrene; E87.1 Hypo-osmolality and hyponatremia; E11.65 Type 2 diabetes mellitus with hyperglycemia; I85.00 Esophageal varices without bleeding; L03.115 Cellulitis of right lower limb; Z79.4 Long term (current) use of insulin; I10 Essential (primary) hypertension; L97.519 Non-pressure chronic ulcer of other part of right foot with unspecified severity; E78.5 Hyperlipidemia, unspecified; B95.62 Methicillin resistant Staphylococcus aureus infection as the cause of diseases classified elsewhere; Z87.891 Personal history of nicotine dependence
CPT/HCPCS: 2NBP; 75657; 87070; 87075; 87184; 36415; 71045; 73630-RT; 82436; 87040; 87147; 88305; 93005; 93010; C1769; J0131; J1100; J1644; J1650; J2001; J2405; J3370; J7040; J7042